=== PATIENT | female | born 1980 | race Two or more races ===

== ENCOUNTER 2016-10-01 15:44 | Emergency (ER) | payer OTHER ==
[~2016-10-01] VITALS: Ht 160 cm; Wt 111.6 kg
--- NOTE | 2016-10-01 16:17 | EKG ---
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
[2016-10-01] MEDS: CLONIDINE HCL 0.1 MG TABLET PO ONE ×2 (16:40→18:13)
[2016-10-01] MEDS: OXYCODONE/APAP 10/325 TABLET. PO ONE (17:08)
--- NOTE | 2016-10-01 17:09 | RAD ---
Right ankle, 3 views, 10/01/2016: History: Fall, pain No acute fracture or dislocation is identified. A small calcific fragment along the dorsal aspect of the anterior portion of the talus appears to be old. There is moderate diffuse soft tissue swelling about the ankle. IMPRESSION: No acute bony abnormality is detected.
[2016-10-01] MEDS: CARVEDILOL 25 MG TABLET PO ONE (17:10)
[2016-10-01] MEDS: HYDROCHLOROTHIAZIDE 25 MG TABLET PO ONE (17:12)
[2016-10-01 18:13] VITALS: BP 159/108
--- NOTE | 2016-10-05 09:22 | ED.ADGEN ---
Past History Past Medical History: Other Past Surgical History: Appendectomy, Alcohol Use: Occasionally Drug Use: None Adult General Chief Complaint Chief Complaint Multiple medical complaints HPI HPI Patient is a 35-year-old female who presents with multiple medical complaints approximately one week ago. Reports persistent pain in ambulation with aggravation of lower back pain. Patient has reveals back surgery. Patient so noted to be hypertensive is been off all blood pressure medications for the past several months due to loss of insurance. Patient recently regained her healthcare insurance like to be stressed restart on medications. Patient denies headache, blurred vision, chest pain, palpitations, shortness of breath. No other acute symptoms or complaints. Review of Systems Review of Systems Review symptoms as per history of present illness. All other review symptoms are negative. Current Medications Current Medications Current Medications Medications (Trade) Dose Ordered Sig/Marycruz Start Time Stop Time Status Last Admin Dose Admin Carvedilol (Coreg) 25 mg 1X ONCE 10/01/16 17:15 10/01/16 17:16 DC 10/01/16 17:10 25 MG Clonidine HCl (Catapres) 0.1 mg 1X ONCE 10/01/16 18:15 10/01/16 18:16 DC 10/01/16 18:13 0.1 MG Hydrochlorothiazide (Hydrodiuril) 25 mg 1X ONCE 10/01/16 17:00 10/01/16 17:01 DC 10/01/16 17:12 25 MG Oxycodone/ Acetaminophen (Percocet 10/325) 1 tab 1X ONCE 10/01/16 17:10 10/01/16 17:11 DC 10/01/16 17:08 1 TAB Allergies Allergies Allergies Coded Allergies Type Severity Reaction Last Updated Verified Penicillins Allergy Unknown 10/01/16 Yes Physical Exam Physical Exam Constitutional: Well developed, well nourished, no acute distress, non-toxic appearance. HENT: Normocephalic, atraumatic, bilateral external ears normal, oropharynx moist, no oral exudates, nose normal. Eyes: PERRL. Neck: Normal range of motion, no tenderness, supple. Cardiovascular:Heart rate regular rhythm, no murmur. Lungs & Thorax: Bilateral breath sounds clear to auscultation. Abdomen: Bowel sounds normal, soft, no tenderness. Skin: Warm, dry, no erythema, no rash. Back: No tenderness, diffuse low back pain. Extremities: Right ankle, swelling, tenderness over lateral malleolus, noted. Neurologic: Alert and oriented X 3, normal motor function, normal sensory function, no focal deficits noted. Psychologic: Affect normal, judgement normal, mood normal. Current Patient Data Vital Signs Vital Signs Date Time Temp Pulse Resp B/P Pulse Ox O2 Delivery O2 Flow Rate FiO2 10/01/16 18:13 81 159/108 10/01/16 16:21 97.9 20 97 Room Air EKG EKG [] Radiology/Procedures Radiology/Procedures [] Impressions: Hypertension with medical noncompliance Course & Med Decision Making Course & Med Decision Making Pertinent Labs and Imaging studies reviewed. (See chart for details) [Blood pressure no evidence of fracture on x-ray. Will treat back pain. PCP referral. Return precautions reviewed.] Final Impression Final Impression [1. Hypertension 2. right ankle sprain 3. acute low back pain] Problems: Dragon Disclaimer Dragon Disclaimer This electronic medical record was generated, in whole or in part, using a voice recognition dictation system. NIKA DUNHAM DO Oct 05, 2016 09:21
== END 2016-10-01 18:28 | disposition home or self-care (01) ==
LOC: ER 15:44
DX: M54.5 Low back pain (principal); I10 Essential (primary) hypertension; S93.401A Sprain of unspecified ligament of right ankle, initial encounter; Z91.19 Patient's noncompliance with other medical treatment and regimen; Z88.0 Allergy status to penicillin; X58.XXXA Exposure to other specified factors, initial encounter; Y93.89 Activity, other specified; Y92.89 Other specified places as the place of occurrence of the external cause; Y99.8 Other external cause status
CPT/HCPCS: 73610; 93005; 99284

== ENCOUNTER 2016-10-20 10:25 | Emergency (ER) | payer OTHER ==
[~2016-10-20] VITALS: Ht 160 cm; Wt 111.1 kg
[2016-10-20 10:45] VITALS: BP 166/106
[2016-10-20] MEDS ORDERED: AZIT500T PO (11:41)
--- NOTE | 2016-10-20 14:00 | ED.ADGEN ---
Past History Past Medical History: Hypertension Past Surgical History: Appendectomy, , Other Alcohol Use: Occasionally Drug Use: None Adult General Chief Complaint Chief Complaint Sore throat, cough, sinus congestion HPI HPI Patient is a 35 year old female who presents with sore throat, sinus drainage and cough since last night. No known fevers. She has not taken any symptom controlling medication. Presents with 3 other family members with similar complaints. No shortness of breath. Review of Systems Review of Systems Constitutional: Denies fever or chills [] Eyes: Denies change in visual acuity, redness, or eye pain [] HENT: Denies nasal congestion or sore throat [] Respiratory: Denies cough or shortness of breath [] Cardiovascular: No additional information not addressed in HPI [] GI: Denies abdominal pain, nausea, vomiting, bloody stools or diarrhea [] : Denies dysuria or hematuria [] Musculoskeletal: Denies back pain or joint pain [] Integument: Denies rash or skin lesions [] Neurologic: Denies headache, focal weakness or sensory changes [] Endocrine: Denies polyuria or polydipsia [] Allergies Allergies Allergies Coded Allergies Type Severity Reaction Last Updated Verified Penicillins Allergy Unknown 10/01/16 Yes Physical Exam Physical Exam Constitutional: Well developed, well nourished, no acute distress, non-toxic appearance. [] HENT: Normocephalic, atraumatic, bilateral external ears normal, oropharynx moist, no oral exudates, nose normal. erythema with mild edema, no exudate, uvula rises midline Eyes: PERRLA, EOMI, conjunctiva normal, no discharge. [] Neck: Normal range of motion, no tenderness, supple, no stridor. [] Cardiovascular:Heart rate regular with regular rhythm, no murmur [] Lungs & Thorax: Bilateral breath sounds clear to auscultation , no wheeze or crackles Abdomen: Bowel sounds normal, soft, no tenderness, no masses, no pulsatile masses. [] Skin: Warm, dry, no erythema, no rash. [] Back: No tenderness, no CVA tenderness. [] Extremities: No tenderness, no cyanosis, no clubbing, ROM intact, no edema. [] Neurologic: Alert and oriented X 3, normal motor function, normal sensory function, no focal deficits noted. [] Current Patient Data Vital Signs Vital Signs Date Time Temp Pulse Resp B/P Pulse Ox O2 Delivery O2 Flow Rate FiO2 10/20/16 10:45 98.4 80 16 98 Lab Results Laboratory Tests Test 10/20/16 11:10 Group A Streptococcus Rapid Positive (NEGATIVE) EKG EKG [] Radiology/Procedures Radiology/Procedures [] Course & Med Decision Making Course & Med Decision Making Pertinent Labs and Imaging studies reviewed. (See chart for details) rapid strep positive. Pt dc'd with rx for azithromycin 500mg daily x 5 days Final Impression Final Impression strep pharyngitis[] Problems: Dragon Disclaimer Dragon Disclaimer This electronic medical record was generated, in whole or in part, using a voice recognition dictation system. VAMSI LIMA MD Oct 20, 2016 14:00
== END 2016-10-20 12:08 | disposition home or self-care (01) ==
LOC: ER 10:25
DX: J02.0 Streptococcal pharyngitis (principal); I10 Essential (primary) hypertension; Z88.0 Allergy status to penicillin
CPT/HCPCS: 87880; 99283

== ENCOUNTER 2017-02-26 07:21 | Emergency (ER) | payer OTHER ==
[~2017-02-26] VITALS: Ht 160 cm; Wt 106.1 kg
[~2017-02-26 07:21] MED LIST: AZIT500T PO
--- NOTE | 2017-02-26 07:54 | ED.ADGEN ---
Past History Past Medical History: Hypertension Past Surgical History: Appendectomy, , Other Alcohol Use: Occasionally Drug Use: None Adult General HPI HPI Patient is a 36-year-old woman, with history of hypertension, which she states was diagnosed at age 16, and cardiomyopathy. Patient presents emergency department complaining of a 3 day history of "my blood pressure being high". She states she's been experiencing headache, dizziness and lightheadedness, with numbness in her right hand, also swelling in her feet and hands, additionally she's been experiencing pain with urination, and chest pain which she states is in the center of her chest and also radiating into her left shoulder. Associated with some shortness of breath. Swelling in hands and feet is currently resolved. 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 Patient states that she has had similar to previously due to uncontrolled high blood pressure. She states she stopped taking her blood pressure medication 2 days ago, because "I just forgot to take it", due to her life stressors. She states she does not currently have a primary care provider, she is preceded been seen by Dr. Dumont of cardiology , but has not followed up with a provider in over a year. She states that previously she is being evaluated for a possible pacemaker due to bradycardia, but did not follow-up. She denies any recent travel or surgery, and history of DVT or PE, any ingestions, rashes, exposures, nausea, vomiting, diarrhea, denies any possibility of . Describes her headache as located in the back of her head, and similar to previous headaches that she's experienced with high blood pressure, denies any focal weakness, describes it as being "weak all over", and the headache as an aching and throbbing sensation, no vision changes , no fevers or chills. BP:193/127, HR:78, 98%, RR:18, unlabored, Temp: 98.4 PO. Review of Systems Review of Systems Constitutional: Denies fever or chills [] Eyes: Denies change in visual acuity, redness, or eye pain [] HENT: Denies nasal congestion or sore throat [] Respiratory: Denies cough or shortness of breath [] Cardiovascular: No additional information not addressed in HPI [] GI: Denies abdominal pain, nausea, vomiting, bloody stools or diarrhea [] : Denies hematuria, complaining of some pain with urination, and pain in her back. Last 3 days. Musculoskeletal: Denies joint pain , complaining of left lower back aching. [] Integument: Denies rash or skin lesions [] Neurologic: Denies focal weakness, complaining of headache, generalized weakness , numbness in the right hand. Presyncopal type symptoms. Endocrine: Denies polyuria or polydipsia [] Current Medications Current Medications Current Medications Medications (Trade) Dose Ordered Sig/Marycruz Start Time Stop Time Status Last Admin Dose Admin Acetaminophen (Tylenol) 1,000 mg 1X ONCE 02/26/17 08:10 02/26/17 08:11 DC 02/26/17 08:10 1,000 MG Carvedilol (Coreg) 25 mg 1X ONCE 02/26/17 08:30 02/26/17 08:31 DC 02/26/17 08:30 25 MG Hydrochlorothiazide (Hydrodiuril) 25 mg 1X ONCE 02/26/17 08:30 02/26/17 08:31 DC 02/26/17 08:14 25 MG Labetalol HCl (Normodyne) 10 mg 1X ONCE 02/26/17 09:15 02/26/17 09:16 DC 02/26/17 09:15 10 MG Nicardipine HCl 50 mg/Sodium Chloride 270 ml @ 0 mls/hr CONT PRN 02/26/17 09:30 Allergies Allergies Allergies Coded Allergies Type Severity Reaction Last Updated Verified Penicillins Allergy Unknown 10/01/16 Yes Physical Exam Physical Exam Constitutional: Well developed, well nourished, no acute distress, non-toxic appearance. [] HENT: Normocephalic, atraumatic, bilateral external ears normal, oropharynx moist, no oral exudates, nose normal. [] Eyes: PERRLA, EOMI, conjunctiva normal, no discharge. [] Neck: Normal range of motion, no tenderness, supple, no stridor. [] Cardiovascular:Heart rate regular rhythm, no murmur, S1, S2, no rubs or gallops. [] Lungs & Thorax: Bilateral breath sounds clear to auscultation , no wheezing, rhonchi, rales. No chest or crepitus or tenderness. [] Abdomen: Bowel sounds normal, soft, no tenderness, no rebound, rigidity, no guarding, no masses, no pulsatile masses. [] Skin: Warm, dry, no erythema, no rash. [] Back: No tenderness, no CVA tenderness. [] Extremities: No tenderness, no cyanosis, no clubbing, ROM intact, no edema. Negative Homans sign. [] Neurologic: Alert and oriented X 3, normal motor function, normal sensory function, no focal deficits noted. [] Psychologic: Affect normal, judgement normal, mood normal. [] Current Patient Data Vital Signs Vital Signs Date Time Temp Pulse Resp B/P (MAP) Pulse Ox O2 Delivery O2 Flow Rate FiO2 02/26/17 09:15 67 200/119 02/26/17 09:05 18 98 02/26/17 07:36 98.4 Room Air Lab Results Laboratory Tests Test 02/26/17 07:38 02/26/17 08:05 02/26/17 08:20 White Blood Count 8.0 x10^3/uL (4.0-11.0) Red Blood Count 4.43 x10^6/uL (3.50-5.40) Hemoglobin 13.6 g/dL (12.0-15.5) Hematocrit 40.8 % (36.0-47.0) Mean Corpuscular Volume 92 fL (79-100) Mean Corpuscular Hemoglobin 31 pg (25-35) Mean Corpuscular Hemoglobin Concent 33 g/dL (31-37) Red Cell Distribution Width 13.5 % (11.5-14.5) Platelet Count 173 x10^3/uL (140-400) Neutrophils (%) (Auto) 65 % (31-73) Lymphocytes (%) (Auto) 23 % (24-48) L Monocytes (%) (Auto) 6 % (0-9) Eosinophils (%) (Auto) 6 % (0-3) H Basophils (%) (Auto) 1 % (0-3) Neutrophils # (Auto) 5.2 x10^3uL (1.8-7.7) Lymphocytes # (Auto) 1.8 x10^3/uL (1.0-4.8) Monocytes # (Auto) 0.5 x10^3/uL (0.0-1.1) Eosinophils # (Auto) 0.5 x10^3/uL (0.0-0.7) Basophils # (Auto) 0.1 x10^3/uL (0.0-0.2) Sodium Level 139 mmol/L (136-145) Potassium Level 4.0 mmol/L (3.5-5.1) Chloride Level 106 mmol/L (98-107) Carbon Dioxide Level 26 mmol/L (21-32) Anion Gap 7 (6-14) Blood Urea Nitrogen 14 mg/dL (7-20) Creatinine 0.8 mg/dL (0.6-1.0) Estimated GFR (Cockcroft-Gault) 82.1 BUN/Creatinine Ratio 18 (6-20) Glucose Level 104 mg/dL (70-99) H Calcium Level 8.5 mg/dL (8.5-10.1) Total Bilirubin 0.5 mg/dL (0.2-1.0) Aspartate Amino Transferase (AST) 15 U/L (15-37) Alanine Aminotransferase (ALT) 17 U/L (14-59) Alkaline Phosphatase 90 U/L (46-116) Troponin I Quantitative < 0.017 ng/mL (0-0.055) BD-Ibk-H-Type Natriuretic Peptide 192 pg/mL (0-124) H Total Protein 6.9 g/dL (6.4-8.2) Albumin 3.4 g/dL (3.4-5.0) Albumin/Globulin Ratio 1.0 (1.0-1.7) Urine Collection Type Unknown Urine Color Straw Urine Clarity Hazy Urine pH 7.0 Urine Specific [place] 1.010 Urine Protein Neg (NEG-TRACE) Urine Glucose (UA) Neg mg/dL (NEG) Urine Ketones (Stick) Neg mg/dL (NEG) Urine Blood Mod (NEG) Urine Nitrite Neg (NEG) Urine Bilirubin Neg (NEG) Urine Urobilinogen Dipstick 0.2 mg/dL (0.2 mg/dL) Urine Leukocyte Esterase Neg (NEG) Urine RBC 3-5 /HPF (0-2) Urine WBC Rare /HPF (0-4) Urine Squamous Epithelial Cells Few /LPF Urine Transitional Epithelial Cells Occ /LPF Urine Bacteria Few /HPF (0-FEW) Urine Opiates Screen Neg (NEG) Urine Methadone Screen Neg (NEG) Urine Barbiturates Neg (NEG) Urine Phencyclidine Screen Neg (NEG) Urine Amphetamine/Methamphetamine Neg (NEG) Urine Benzodiazepines Screen Neg (NEG) Urine Cocaine Screen Neg (NEG) Urine Cannabinoids Screen Pos (NEG) Urine Ethyl Alcohol Neg (NEG) EKG EKG EC: Sinus rhythm, heart rate 67 beats/minute, upright axis, QTC of 426, MI 150, QRS of 88, patient with contour normality is noted in lead 3, and in the lateral leads, with nonspecific elevation noted in V4 through V6, no other abnormality is identified. Abnormal ECG, does not meet STEMI criteria, no prior for comparison. As interpreted by me. [] Radiology/Procedures Radiology/Procedures [][address] [address] IMAGING REPORT Signed PATIENT: ROSS QUISPE ACCOUNT: [id number] : 1980 LOCATION: ER AGE: 36 SEX: F EXAM STATUS: REG ER ORD. PHYSICIAN: TREY NICOLAS DO REASON: HTN/Dizziness/GARCIA PROCEDURE: CT HEAD WO CONTRAST CT head without contrast 02/26/2017 Indication: Hypertension, dizziness Comparison: None available Technique: Multiple axial noncontrast CT images of the head were obtained from the skull base through the vertex. Findings: The ventricles, sulci and basal cisterns are within normal limits. Posey-white matter differentiation is normal. There is no acute intracranial hemorrhage. There is no mass, mass effect or midline shift. Sellar and suprasellar cistern appear normal. Orbits are normal in appearance. Paranasal sinuses are well aerated. Mastoid air cells are well aerated. Scalp and calvaria are normal. Impression: There is no acute intracranial hemorrhage. PQRS Compliance Statement: One or more of the following individualized dose reduction techniques were utilized for this examination: 1. Automated exposure control 2. Adjustment of the mA and/or kV according to patient size 3. Use of iterative reconstruction technique DICTATED AND SIGNED BY: SOWMYA PENN MD DATE: 02/26/17 0845 CC: TREY NICOLAS DO; PCP,NO ~ [address] [address] IMAGING REPORT Signed PATIENT: ROSS QUISPE ACCOUNT: [id number] : 1980 LOCATION: ER AGE: 36 SEX: F EXAM STATUS: REG ER ORD. PHYSICIAN: TREY NICOLAS DO REASON: CP/HTN PROCEDURE: CHEST PA & LATERAL Chest radiograph 02/26/2017 9:33 AM Indication: Hypertension, dizziness Comparison: None available Technique: PA and lateral views of the chest are provided. Findings: Cardiomediastinal silhouette is within normal limits. No pleural effusions, pulmonary vascular congestion or pneumothorax. There is an 8 mm nodular opacity in the right upper lobe. Lungs are otherwise clear. Osseous structures are normal. Impression: 1. There is an 8 mm nodular opacity in the right upper lobe. This finding is indeterminate and further evaluation with nonemergent CT chest may be of benefit. 2. Otherwise, no evidence for pulmonary infiltrate. DICTATED AND SIGNED BY: SOWMYA PENN MD DATE: 02/26/17 0847 CC: TREY NICOLAS DO; PCP,NO ~ Course & Med Decision Making Course & Med Decision Making Pertinent Labs and Imaging studies reviewed. (See chart for details) After discussion at bedside concerning risk versus benefit of imaging and evaluation, patient is agreeable to receiving CT of the head due to hypertension with headache, and complaint of sensory changes, although subjectively patient's examination is unremarkable, along with chest x-ray, and laboratory studies. ECG reveals contour abnormalities in the inferior leads and lateral leads, review of records reveals patient's blood pressure medication to be lisinopril/hydrochlorothiazide 20-25 milligrams once daily, and carvedilol 25 mg once daily per her last pharmacy fills at [facility]. All medications ordered, along with Tylenol, patient blood pressure before treatment is 166/112, heart rate of 63-68. Patient received home medications and Tylenol without issue as stated, blood pressure remained elevated, 180/116 1 hour after receiving her medications, CT of head was unremarkable, chest x-ray revealed no acute findings , but evidence of an 8 mm nodule in the right upper lobe which require further follow-up. Laboratory studies not reveal acutely concerning findings, urine drug screen is positive for marijuana. 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 He recommends administering 10 mg labetalol IV, heart rate remains in the 60s, and blood pressure remains 180s over 1 teens as stated, and instituting the patient in a nicardipine infusion. He requested the patient be transferred to [facility] for additional evaluation and treatment. I did speak to the patient, patient is agreeable this plan as stated, written consent obtained. I spoke with Dr. Yanes of internal medicine, patient was accepted to her service as a full admission for malignant hypertension, with cardiology consultation and management as stated. Final Impression Final Impression [] Problems: Dragon Disclaimer Dragon Disclaimer This electronic medical record was generated, in whole or in part, using a voice recognition dictation system. Departure: Impression: Primary Impression: Malignant hypertension Additional Impression: Noncompliance w/medication treatment due to intermit use of medication Disposition: XFER T-TRM HOSP Condition: IMPROVED TREY NICOLAS DO Feb 26, 2017 07:54
[2017-02-26] MEDS ORDERED: ACETAMINOPHEN 500 MG TABLET PO ONE (08:10)
[2017-02-26 08:25] LABS: BASO # 0.1 x10^3/uL (0.0-0.2); BASO % 1 % (0-3); EOS # 0.5 x10^3/uL (0.0-0.7); EOS % 6 % (0-3); HEMATOCRIT 40.8 % (36.0-47.0); HEMOGLOBIN 13.6 g/dL (12.0-15.5); LYMPH # 1.8 x10^3/uL (1.0-4.8); LYMPH % 23 % (24-48); MEAN CORPUSCULAR HEMOGLOBIN 31 pg (25-35); MEAN CORPUSCULAR HGB CONC 33 g/dL (31-37); MEAN CORPUSCULAR VOLUME 92 fL (79-100); MONO # 0.5 x10^3/uL (0.0-1.1); MONO % 6 % (0-9); NEUT # 5.2 x10^3uL (1.8-7.7); NEUT % 65 % (31-73); PLATELET COUNT 173 x10^3/uL (140-400); RED BLOOD COUNT 4.43 x10^6/uL (3.50-5.40); RED CELL DISTRIBUTION WIDTH 13.5 % (11.5-14.5)
[2017-02-26] MEDS ORDERED: hydroCHLOROthiazide 25 MG TABLET PO ONE (08:30)
[2017-02-26] MEDS ORDERED: CARVEDILOL 12.5 MG TABLET PO ONE (08:30)
[2017-02-26 08:37] LABS: ALBUMIN 3.4 g/dL (3.4-5.0); CALCIUM 8.5 mg/dL (8.5-10.1); CREATININE 0.8 mg/dL (0.6-1.0); GFR 82.1; TOTAL BILIRUBIN 0.5 mg/dL (0.2-1.0); TOTAL PROTEIN 6.9 g/dL (6.4-8.2)
--- NOTE | 2017-02-26 08:50 | RAD ---
CT head without contrast 02/26/2017 Indication: Hypertension, dizziness Comparison: None available Technique: Multiple axial noncontrast CT images of the head were obtained from the skull base through the vertex. Findings: The ventricles, sulci and basal cisterns are within normal limits. Posey-white matter differentiation is normal. There is no acute intracranial hemorrhage. There is no mass, mass effect or midline shift. Sellar and suprasellar cistern appear normal. Orbits are normal in appearance. Paranasal sinuses are well aerated. Mastoid air cells are well aerated. Scalp and calvaria are normal. Impression: There is no acute intracranial hemorrhage. PQRS Compliance Statement: One or more of the following individualized dose reduction techniques were utilized for this examination: 1. Automated exposure control 2. Adjustment of the mA and/or kV according to patient size 3. Use of iterative reconstruction technique
--- NOTE | 2017-02-26 08:52 | RAD ---
Chest radiograph 02/26/2017 9:33 AM Indication: Hypertension, dizziness Comparison: None available Technique: PA and lateral views of the chest are provided. Findings: Cardiomediastinal silhouette is within normal limits. No pleural effusions, pulmonary vascular congestion or pneumothorax. There is an 8 mm nodular opacity in the right upper lobe. Lungs are otherwise clear. Osseous structures are normal. Impression: 1. There is an 8 mm nodular opacity in the right upper lobe. This finding is indeterminate and further evaluation with nonemergent CT chest may be of benefit. 2. Otherwise, no evidence for pulmonary infiltrate.
[2017-02-26 08:55] LABS: BILIRUBIN,URINE NEG (NEG); CLARITY,URINE HAZY; COLOR,URINE STRAW; GLUCOSE,URINE NEG (NEG)
[2017-02-26 08:56] LABS: BACTERIA,URINE FEW /HPF (0-FEW); NITRITE,URINE NEG (NEG); SQUAMOUS EPITHELIAL CELL,UR FEW /LPF; UROBILINOGEN,URINE 0.2 mg/dL (0.2 mg/dL); WBC,URINE RARE /HPF (0-4)
[2017-02-26 09:06] LABS: AMPHETAMINE/METHAMPHETAMINE NEG (NEG); BARBITURATES NEG (NEG); BENZODIAZEPINES NEG (NEG); CANNABINOIDS POS (NEG); COCAINE NEG (NEG); METHADONE NEG (NEG); OPIATES NEG (NEG); PHENCYCLIDINE NEG (NEG)
[2017-02-26] MEDS ORDERED: LABETALOL 20 MG/4 ML DISP.SYRIN. IVP ONE (09:15)
[2017-02-26 09:57] LABS: U PREG PATIENT NEGATIVE (NEG)
--- NOTE | 2017-02-26 10:14 | EKG ---
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
[2017-02-26 10:40] VITALS: BP 146/79
== END 2017-02-26 10:48 | disposition short-term general hospital (02) ==
LOC: ER 07:21 → EEVIPCON 07:21 → ER 10:48
DX: I10 Essential (primary) hypertension (principal); I42.9 Cardiomyopathy, unspecified; Z91.14 Patient's other noncompliance with medication regimen; Z88.0 Allergy status to penicillin
CPT/HCPCS: 36415; 70450; 71020; 80053; 80307; 81001; 81025; 83880; 84484; 85025; 93005; 96374; 99285; J3490; G0479

== ENCOUNTER 2017-04-29 23:58 | Emergency (ER) | payer OTHER ==
[~2017-04-29] VITALS: Ht 160 cm; Wt 105.0 kg
--- NOTE | 2017-04-30 00:07 | ED.ADGEN ---
Past History Past Medical History: Bipolar, Depression, Hypertension, [place], Other Additional Past Medical Histor: Alcohol Abuse Past Surgical History: Appendectomy, , Other Alcohol Use: Occasionally Drug Use: Marijuana Adult General Chief Complaint Chief Complaint " I want to fucking ... ".. " I can't fucking breath..."... " I got severe chest pain...." " I don't give a shit...I am going to fucking kill myself anyway...".." They fucking arrested me.. for trying to kill the fucker and throw his ass out".. HPI HPI Patient is a 36 year old female who presents with above hx and complaints severe chest pain, dyspnea and suicidal ideation. Pt. had been placed under arrest for disruptive behavior and property destruction. Pt. complaining of central chest pain and severe dyspnea. Pt. does admit to heavy alcohol use tonight. Pt. states she been worked up before for chest pain. Pt. on 2016 & EKG showed a normal sinus rhythm. Pt. EKG tonight showed Supraventricular rate 107 with LBB, Intraventricular block findings consistent with anterolateral [place]. Pt. is very agitated, diaphoretic, and combative. Pt was activated as STEMI. Pt. has followed with Dr. Dumont in past. Calls placed to Dr. Dumont. Number given for Presley huggins Discussed findings with Dr. Wang and he was tele -faxed our EKG's. He advised he would not take pt to cath at this time. Dr. Sherwood eventually contacted and advised to have pt. admitted to Hospitalist and he would take the cardiology consult. Pt. Admitted to Dr. Rogel - after unable to contact Dr. Solano by phone. Review of Systems Review of Systems Constitutional: Denies fever or chills [] Eyes: Denies change in visual acuity, redness, or eye pain [] HENT: Denies nasal congestion or sore throat [] Respiratory: Denies cough or shortness of breath [] Cardiovascular: No additional information not addressed in HPI [] GI: Denies abdominal pain, nausea, vomiting, bloody stools or diarrhea [] : Denies dysuria or hematuria [] Musculoskeletal: Denies back pain or joint pain [] Integument: Denies rash or skin lesions [] Neurologic: Denies headache, focal weakness or sensory changes [] Endocrine: Denies polyuria or polydipsia [] Family History Family History [place], DM Current Medications Current Medications Current Medications Medications (Trade) Dose Ordered Sig/Marycruz Start Time Stop Time Status Last Admin Dose Admin Aspirin (Children'S Aspirin) 324 mg 1X ONCE 04/30/17 00:15 04/30/17 00:41 DC 04/30/17 00:15 324 MG Enoxaparin Sodium (Lovenox 100mg Syringe) 100 mg 1X ONCE 04/30/17 00:45 04/30/17 00:46 DC 04/30/17 00:43 100 MG See Nursing for home meds. Allergies Allergies Allergies Coded Allergies Type Severity Reaction Last Updated Verified Penicillins Allergy Unknown 10/01/16 Yes Physical Exam Physical Exam Constitutional: in acute emotional distress, intoxicated appearance. Yelling she wants to . Yelling she is going to kill herself first chance she gets. HENT: Normocephalic, atraumatic, bilateral external ears normal, oropharynx moist, no oral exudates, nose normal. Poor dentition. Abrasions on her neck and face Eyes: PERRLA, EOMI, conjunctiva injected, no discharge. [] Neck: Normal range of motion, no tenderness, supple, no stridor. Abrasion Hicks on neck. Circumference more than 17 inches Cardiovascular:Tachycardia rate regular rhythm, no murmur . PMI to the left. Pulses equal radial and femoral. Lungs & Thorax: Bilateral breath sounds equal at apex with scattered wheezes on auscultation [] Abdomen: Bowel sounds decreased, soft, no tenderness, no masses, no pulsatile masses. Obese. Old surgery scars Skin: Warm, diaphoretic, no erythema, no rash. [] Back: No tenderness, no CVA tenderness. [] Extremities: No tenderness, no cyanosis, no clubbing, ROM intact, 2+ ankle edema. No cording appreciated Neurologic: Alert and oriented X 3, but appear very intoxicated- ETOH, normal motor function, normal sensory function, no focal deficits noted. [] Psychologic: Affect agitated and threatening to kill herself, judgement irrational, mood vacillates between crying and threatening Current Patient Data Vital Signs Vital Signs Date Time Temp Pulse Resp B/P (MAP) Pulse Ox O2 Delivery O2 Flow Rate FiO2 04/29/17 23:58 98.2 131 36 100 Room Air Lab Results Laboratory Tests Test 04/30/17 00:05 04/30/17 00:30 White Blood Count 11.3 x10^3/uL (4.0-11.0) H Red Blood Count 4.84 x10^6/uL (3.50-5.40) Hemoglobin 15.2 g/dL (12.0-15.5) Hematocrit 44.5 % (36.0-47.0) Mean Corpuscular Volume 92 fL (79-100) Mean Corpuscular Hemoglobin 31 pg (25-35) Mean Corpuscular Hemoglobin Concent 34 g/dL (31-37) Red Cell Distribution Width 14.1 % (11.5-14.5) Platelet Count 238 x10^3/uL (140-400) Neutrophils (%) (Auto) 59 % (31-73) Lymphocytes (%) (Auto) 32 % (24-48) Monocytes (%) (Auto) 6 % (0-9) Eosinophils (%) (Auto) 3 % (0-3) Basophils (%) (Auto) 0 % (0-3) Neutrophils # (Auto) 6.6 x10^3uL (1.8-7.7) Lymphocytes # (Auto) 3.6 x10^3/uL (1.0-4.8) Monocytes # (Auto) 0.7 x10^3/uL (0.0-1.1) Eosinophils # (Auto) 0.3 x10^3/uL (0.0-0.7) Basophils # (Auto) 0.0 x10^3/uL (0.0-0.2) Prothrombin Time 10.5 SEC (9.4-11.4) Prothrombin Time INR 1.0 (0.9-1.1) PTT 27 SEC (23-33) D-Dimer ([place]) 0.45 mg/L (0.00-0.50) Maternal Serum HCG Beta Subunit 1 mIU/mL (0-6) Troponin I Quantitative < 0.017 ng/mL (0-0.055) Ethyl Alcohol Level 201 mg/dL (0-10) H Urine Collection Type Unknown Urine Color [place] Urine Clarity Cloudy Urine pH 6.0 Urine Specific [place] 1.010 Urine Protein 100 mg/dl (NEG-TRACE) Urine Glucose (UA) Neg mg/dL (NEG) Urine Ketones (Stick) Neg mg/dL (NEG) Urine Blood Large (NEG) Urine Nitrite Neg (NEG) Urine Bilirubin Neg (NEG) Urine Urobilinogen Dipstick 0.2 mg/dL (0.2 mg/dL) Urine Leukocyte Esterase Neg (NEG) Urine RBC Tntc /HPF (0-2) Urine WBC 5-10 /HPF (0-4) Urine Squamous Epithelial Cells Occ /LPF Urine Bacteria Mod /HPF (0-FEW) Sodium Level 145 mmol/L (136-145) Potassium Level 3.2 mmol/L (3.5-5.1) L Chloride Level 109 mmol/L (98-107) H Carbon Dioxide Level 17 mmol/L (21-32) L Anion Gap 19 (6-14) H Blood Urea Nitrogen 14 mg/dL (7-20) Creatinine 1.0 mg/dL (0.6-1.0) Estimated GFR (Cockcroft-Gault) 63.5 BUN/Creatinine Ratio 14 (6-20) Glucose Level 134 mg/dL (70-99) H Calcium Level 8.9 mg/dL (8.5-10.1) Magnesium Level 2.2 mg/dL (1.8-2.4) Total Bilirubin 0.3 mg/dL (0.2-1.0) Direct Bilirubin 0.1 mg/dL (0.0-0.2) Aspartate Amino Transferase (AST) 19 U/L (15-37) Alanine Aminotransferase (ALT) 23 U/L (14-59) Alkaline Phosphatase 99 U/L (46-116) Creatine Kinase 118 U/L (26-192) Creatine Kinase MB (Mass) 0.8 ng/mL (0.0-3.6) Creatine Kinase MB Relative Index 0.7 % (0-4) ID-Qok-M-Type Natriuretic Peptide 134 pg/mL (0-124) H Total Protein 8.1 g/dL (6.4-8.2) Albumin 4.1 g/dL (3.4-5.0) Albumin/Globulin Ratio 1.0 (1.0-1.7) Lipase 264 U/L (73-393) Urine Opiates Screen Neg (NEG) Urine Methadone Screen Neg (NEG) Urine Barbiturates Neg (NEG) Urine Phencyclidine Screen Neg (NEG) Urine Amphetamine/Methamphetamine Neg (NEG) Urine Benzodiazepines Screen Neg (NEG) Urine Cocaine Screen Neg (NEG) Urine Cannabinoids Screen Pos (NEG) Urine Ethyl Alcohol Pos (NEG) EKG EKG My interpretation EKG shows a supraventricular rhythm at 107 bpm with left axis deviation and intraventricular block. A very abnormal EKG as compared to prior EKG s which were normal on 10/01/2016 and 02/26/17. Radiology/Procedures Radiology/Procedures Interpretation of chest x-ray shows cardiomegaly with no findings of pneumothorax or acute pulmonary changes.[] Course & Med Decision Making Course & Med Decision Making Pertinent Labs and Imaging studies reviewed. (See chart for details) Pt. activated as STEMI- because of CP complaints and EKG changes. Pt. transferred to [facility] and admitted to Dr. Ortiz with consult to cardiology. [] Final Impression Final Impression 1. Suicidal ideation 2. Dyspnea 3. Mental Status Change- Aggressive Behavior 4. Alcohol Abuse 5. Hypokalemia 6. MJ use 7. Leukocytosis 8. Chest Pain 9. New Lt. [place], Intraventricular Block Problems: Dragon Disclaimer Dragon Disclaimer This electronic medical record was generated, in whole or in part, using a voice recognition dictation system. EFREN SADLER MD Apr 30, 2017 00:07
[2017-04-30] MEDS ORDERED: ASPIRIN 81 MG TAB.CHEW PO ONE (00:15)
[2017-04-30 00:24] LABS: BASO % 0 % (0-3); EOS # 0.3 x10^3/uL (0.0-0.7); EOS % 3 % (0-3); HEMATOCRIT 44.5 % (36.0-47.0); HEMOGLOBIN 15.2 g/dL (12.0-15.5); LYMPH # 3.6 x10^3/uL (1.0-4.8); LYMPH % 32 % (24-48); MEAN CORPUSCULAR HEMOGLOBIN 31 pg (25-35); MEAN CORPUSCULAR HGB CONC 34 g/dL (31-37); MEAN CORPUSCULAR VOLUME 92 fL (79-100); MONO # 0.7 x10^3/uL (0.0-1.1); MONO % 6 % (0-9); NEUT # 6.6 x10^3uL (1.8-7.7); NEUT % 59 % (31-73); PLATELET COUNT 238 x10^3/uL (140-400); RED BLOOD COUNT 4.84 x10^6/uL (3.50-5.40); RED CELL DISTRIBUTION WIDTH 14.1 % (11.5-14.5); WHITE BLOOD COUNT 11.3 x10^3/uL (4.0-11.0)
[2017-04-30 00:35] VITALS: BP 165/109
--- NOTE | 2017-04-30 00:36 | EKG ---
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
[2017-04-30] MEDS ORDERED: ENOXAPARIN ** NOTE DOSE ** SYRINGE SQ ONE (00:45)
[2017-04-30 00:47] LABS: ALBUMIN 4.1 g/dL (3.4-5.0); CALCIUM 8.9 mg/dL (8.5-10.1); DIRECT BILIRUBIN 0.1 mg/dL (0.0-0.2); GFR 63.5; MAGNESIUM 2.2 mg/dL (1.8-2.4); POTASSIUM 3.2 mmol/L (3.5-5.1); TOTAL BILIRUBIN 0.3 mg/dL (0.2-1.0); TOTAL PROTEIN 8.1 g/dL (6.4-8.2)
[2017-04-30 00:51] LABS: BILIRUBIN,URINE NEG (NEG); CLARITY,URINE CLOUDY; COLOR,URINE PINK; GLUCOSE,URINE NEG (NEG); NITRITE,URINE NEG (NEG); RBC,URINE TNTC /HPF (0-2); UROBILINOGEN,URINE 0.2 mg/dL (0.2 mg/dL)
[2017-04-30 00:52] LABS: BACTERIA,URINE MOD /HPF (0-FEW); SQUAMOUS EPITHELIAL CELL,UR OCC /LPF
[2017-04-30 01:19] LABS: BARBITURATES NEG (NEG); BENZODIAZEPINES NEG (NEG); CANNABINOIDS POS (NEG); COCAINE NEG (NEG); METHADONE NEG (NEG); OPIATES NEG (NEG); PHENCYCLIDINE NEG (NEG)
[2017-04-30 01:20] LABS: AMPHETAMINE/METHAMPHETAMINE NEG (NEG)
--- NOTE | 2017-04-30 10:42 | RAD ---
Portable AP view CXR: Clinical indications: Chest pain and dyspnea. Abnormal EKG. Comparison: February 26, 2017. Findings: No acute lung infiltrate or pleural effusion or pulmonary edema or lung mass or pneumothorax is seen. The heart size, pulmonary vasculature, mediastinum and both zay are stable. Impression: No acute radiographic abnormality is seen.
== END 2017-04-30 00:48 | disposition short-term general hospital (02) ==
LOC: ER 23:58
DX: R45.851 Suicidal ideations (principal); R06.00 Dyspnea, unspecified; R41.82 Altered mental status, unspecified; F10.10 Alcohol abuse, uncomplicated; E87.6 Hypokalemia; D72.829 Elevated white blood cell count, unspecified; F12.90 Cannabis use, unspecified, uncomplicated; R07.89 Other chest pain; I10 Essential (primary) hypertension; I25.2 Old myocardial infarction; Z88.0 Allergy status to penicillin
CPT/HCPCS: 36415; 71010; 80053; 80076; 80307; 81001; 82553; 83690; 83735; 83880; 84443; 84484; 84702; 85025; 85379; 85610; 85730; 87086; 93005; 96372; 99285; G0480; J1650; G0479

== ENCOUNTER 2017-08-02 07:58 | Emergency (ER) | payer OTHER ==
[2017-08-02] MEDS ORDERED: ONDANSETRON PF 4 MG/2 ML VIAL. IV ONE (09:00)
[2017-08-02] MEDS ORDERED: IV NORMAL SALINE 500ML 500 ML IV ONE (09:00)
[2017-08-02 09:22] LABS: BASO % 1 % (0-3); EOS # 0.2 x10^3/uL (0.0-0.7); EOS % 2 % (0-3); HEMATOCRIT 40.9 % (36.0-47.0); LYMPH # 1.1 x10^3/uL (1.0-4.8); LYMPH % 16 % (24-48); MEAN CORPUSCULAR HEMOGLOBIN 32 pg (25-35); MEAN CORPUSCULAR HGB CONC 34 g/dL (31-37); MEAN CORPUSCULAR VOLUME 93 fL (79-100); MONO # 0.5 x10^3/uL (0.0-1.1); MONO % 7 % (0-9); NEUT # 5.3 x10^3uL (1.8-7.7); NEUT % 74 % (31-73); PLATELET COUNT 172 x10^3/uL (140-400); RED BLOOD COUNT 4.42 x10^6/uL (3.50-5.40); RED CELL DISTRIBUTION WIDTH 13.9 % (11.5-14.5); WHITE BLOOD COUNT 7.1 x10^3/uL (4.0-11.0)
[2017-08-02 09:30] LABS: BACTERIA,URINE 0 /HPF (0-FEW); BILIRUBIN,URINE NEG (NEG); CLARITY,URINE CLEAR; COLOR,URINE YELLOW; GLUCOSE,URINE NEG (NEG); NITRITE,URINE NEG (NEG); SQUAMOUS EPITHELIAL CELL,UR OCC /LPF; U PREG PATIENT NEGATIVE (NEG); UROBILINOGEN,URINE 0.2 mg/dL (0.2 mg/dL); WBC,URINE RARE /HPF (0-4)
[2017-08-02 09:40] LABS: ALBUMIN 3.6 g/dL (3.4-5.0); ALBUMIN/GLOBULIN RATIO 0.9 (1.0-1.7); CALCIUM 8.8 mg/dL (8.5-10.1); CREATININE 0.8 mg/dL (0.6-1.0); GFR 82.1; POTASSIUM 3.7 mmol/L (3.5-5.1); TOTAL BILIRUBIN 0.5 mg/dL (0.2-1.0); TOTAL PROTEIN 7.4 g/dL (6.4-8.2)
[2017-08-02 10:07] VITALS: BP 160/89
[2017-08-02] MEDS ORDERED: ONDA4TAB10 SL (10:28)
--- NOTE | 2017-08-02 10:28 | PHYS DOC ---
Past History Past Medical History: Bipolar, Depression, Hypertension, [place], Other Additional Past Medical Histor: Alcohol Abuse Past Surgical History: Appendectomy, , Other Alcohol Use: Heavy Drug Use: Marijuana Adult General Chief Complaint Chief Complaint: ABDOMINAL PAIN [facility] HPI 36-year-old female patient with history of cardiomyopathy and bipolar disorder complaining of nausea and vomiting and diarrhea for the last 48 hours. Patient states she has had 5 or 6 episodes of vomiting and several episodes of nonbloody diarrhea every day for the last 2 days with cramping lower abdominal pain after episodes of vomiting and diarrhea. She rated her pain 8/10 and denies radiation of pain. Patient states she had one episode of bowel incontinence this morning. She denies urinary symptoms, , sick contact , fever and chills, cough and congestion. Review of Systems Review of Systems Constitutional: Denies fever or chills [] Eyes: Denies change in visual acuity, redness, or eye pain [] HENT: Denies nasal congestion or sore throat [] Respiratory: Denies cough or shortness of breath [] Cardiovascular: No additional information not addressed in HPI [] GI: Reports abdominal pain, nausea, vomiting, diarrhea [] : Denies dysuria or hematuria [] Musculoskeletal: Denies back pain or joint pain [] Integument: Denies rash or skin lesions [] Neurologic: Denies headache, focal weakness or sensory changes [] Endocrine: Denies polyuria or polydipsia [] All other systems were reviewed and found to be within normal limits, except as documented in this note. Current Medications Current Medications Current Medications Medications (Trade) Dose Ordered Sig/Marycruz Start Time Stop Time Status Last Admin Dose Admin Acetaminophen/ Hydrocodone Bitart (Lortab 5/325) 1 tab 1X ONCE 08/02/17 10:30 08/02/17 10:31 UNV Ondansetron HCl (Zofran) 4 mg 1X ONCE 08/02/17 09:00 08/02/17 09:01 DC 08/02/17 09:05 4 MG Sodium Chloride 500 ml @ 0 mls/hr 1X ONCE 08/02/17 09:00 08/02/17 09:01 DC 08/02/17 09:04 500 MLS/HR Allergies Allergies Allergies Coded Allergies Type Severity Reaction Last Updated Verified Penicillins Allergy Unknown 10/01/16 Yes Physical Exam Physical Exam Constitutional: Well nourished, mild distress, non-toxic appearance, anxious. [] HENT: Normocephalic, atraumatic, bilateral external ears normal, oropharynx moist, no oral exudates, nose normal. [] Eyes: PERRLA, EOMI, conjunctiva normal, no discharge. [] Neck: Normal range of motion, no tenderness, supple, no stridor. [] Cardiovascular:Heart rate regular rhythm, no murmur [] Lungs & Thorax: Bilateral breath sounds clear to auscultation [] Abdomen: Bowel sounds normal, soft, no tenderness, no masses, no pulsatile masses. [] Skin: Warm, dry, no erythema, no rash. [] Back: No tenderness, no CVA tenderness. [] Extremities: No tenderness, no cyanosis, no clubbing, ROM intact, no edema. [] Neurologic: Alert and oriented X 3, normal motor function, normal sensory function, no focal deficits noted. [] Psychologic: Anxious, judgement normal Current Patient Data Lab Results Laboratory Tests Test 08/02/17 08:57 08/02/17 09:00 Urine Collection Type Unknown Urine Color Yellow Urine Clarity Clear Urine pH 5.5 Urine Specific [place] 1.015 Urine Protein Neg (NEG-TRACE) Urine Glucose (UA) Neg mg/dL (NEG) Urine Ketones (Stick) Neg mg/dL (NEG) Urine Blood Mod (NEG) Urine Nitrite Neg (NEG) Urine Bilirubin Neg (NEG) Urine Urobilinogen Dipstick 0.2 mg/dL (0.2 mg/dL) Urine Leukocyte Esterase Neg (NEG) Urine RBC 3-5 /HPF (0-2) Urine WBC Rare /HPF (0-4) Urine Squamous Epithelial Cells Occ /LPF Urine Transitional Epithelial Cells /LPF Urine Bacteria 0 /HPF (0-FEW) Urine Mucus Mod /LPF Urine Test Negative (NEG) White Blood Count 7.1 x10^3/uL (4.0-11.0) Red Blood Count 4.42 x10^6/uL (3.50-5.40) Hemoglobin 14.0 g/dL (12.0-15.5) Hematocrit 40.9 % (36.0-47.0) Mean Corpuscular Volume 93 fL (79-100) Mean Corpuscular Hemoglobin 32 pg (25-35) Mean Corpuscular Hemoglobin Concent 34 g/dL (31-37) Red Cell Distribution Width 13.9 % (11.5-14.5) Platelet Count 172 x10^3/uL (140-400) Neutrophils (%) (Auto) 74 % (31-73) H Lymphocytes (%) (Auto) 16 % (24-48) L Monocytes (%) (Auto) 7 % (0-9) Eosinophils (%) (Auto) 2 % (0-3) Basophils (%) (Auto) 1 % (0-3) Neutrophils # (Auto) 5.3 x10^3uL (1.8-7.7) Lymphocytes # (Auto) 1.1 x10^3/uL (1.0-4.8) Monocytes # (Auto) 0.5 x10^3/uL (0.0-1.1) Eosinophils # (Auto) 0.2 x10^3/uL (0.0-0.7) Basophils # (Auto) 0.0 x10^3/uL (0.0-0.2) Sodium Level 139 mmol/L (136-145) Potassium Level 3.7 mmol/L (3.5-5.1) Chloride Level 106 mmol/L (98-107) Carbon Dioxide Level 26 mmol/L (21-32) Anion Gap 7 (6-14) Blood Urea Nitrogen 10 mg/dL (7-20) Creatinine 0.8 mg/dL (0.6-1.0) Estimated GFR (Cockcroft-Gault) 82.1 BUN/Creatinine Ratio 13 (6-20) Glucose Level 103 mg/dL (70-99) H Calcium Level 8.8 mg/dL (8.5-10.1) Total Bilirubin 0.5 mg/dL (0.2-1.0) Aspartate Amino Transferase (AST) 13 U/L (15-37) L Alanine Aminotransferase (ALT) 24 U/L (14-59) Alkaline Phosphatase 87 U/L (46-116) Troponin I Quantitative < 0.017 ng/mL (0-0.055) Total Protein 7.4 g/dL (6.4-8.2) Albumin 3.6 g/dL (3.4-5.0) Albumin/Globulin Ratio 0.9 (1.0-1.7) L Lipase 210 U/L (73-393) EKG EKG [] Radiology/Procedures Radiology/Procedures [] Course & Med Decision Making Course & Med Decision Making Pertinent Labs studies reviewed. (See chart for details) Evaluation of patient in ER showed 36-year-old female patient with complaining of nausea and vomiting and diarrhea and abdominal pain for the last 48 hours. Patient had unremarkable physical exam except for mild anxiety. Labs was unremarkable. Patient treated with IV fluid and Zofran and [place] and felt better. Patient tolerated oral intake without problem. Plan discharge patient home to diagnose of acute viral gastroenteritis. Patient instructed to take liquid diet today. Dragon Disclaimer Dragon Disclaimer This electronic medical record was generated, in whole or in part, using a voice recognition dictation system. Departure Departure: Impression: Primary Impression: Viral gastroenteritis Disposition: HOME, SELF-CARE (At 1027) Condition: IMPROVED Referrals: MIKE PRUITT MD (PCP) Patient Instructions: Viral Gastroenteritis Additional Instructions: Take only liquid diet today Drink plenty of liquids Follow-up with your primary care physician in 3-5 days Return to ER if not getting better Scripts Ondansetron (ZOFRAN ODT) 4 Mg Tab.rapdis 1 TAB SL Q8HRS, #15 TAB Prov: ISAAC COVARRUBIAS MD 08/02/17 ISAAC COVARRUBIAS MD Aug 02, 2017 10:28
[2017-08-02] MEDS ORDERED: HYDROcodone/APAP 5/325MG 1 TAB TABLET PO ONE (10:30)
== END 2017-08-02 10:38 | disposition home or self-care (01) ==
LOC: ER 07:58
DX: A08.4 Viral intestinal infection, unspecified (principal); I10 Essential (primary) hypertension; F31.9 Bipolar disorder, unspecified; I25.2 Old myocardial infarction; F10.20 Alcohol dependence, uncomplicated; F12.10 Cannabis abuse, uncomplicated; Z88.0 Allergy status to penicillin
CPT/HCPCS: 36415; 80053; 81001; 81025; 83690; 84484; 85025; 96361; 96374; 99285; J2405; J7040

== ENCOUNTER 2018-09-05 11:31 | Emergency (ER) | payer OTHER ==
[~2018-09-05] VITALS: Ht 160 cm; Wt 80.3 kg
[~2018-09-05 11:31] MED LIST changes: +ONDA4TAB10 SL
[2018-09-05] MEDS ORDERED: IV NORMAL SALINE 1,000ML 1,000 ML IV ONE (12:00)
[2018-09-05] MEDS ORDERED: ONDANSETRON PF 4 MG/2 ML VIAL. IV ONE (12:00)
[2018-09-05 12:21] LABS: BASO % 1 % (0-3); EOS # 0.2 x10^3/uL (0.0-0.7); EOS % 3 % (0-3); HEMATOCRIT 38.4 % (36.0-47.0); HEMOGLOBIN 12.9 g/dL (12.0-15.5); LYMPH # 1.6 x10^3/uL (1.0-4.8); LYMPH % 26 % (24-48); MEAN CORPUSCULAR HEMOGLOBIN 32 pg (25-35); MEAN CORPUSCULAR HGB CONC 34 g/dL (31-37); MEAN CORPUSCULAR VOLUME 94 fL (79-100); MONO # 0.4 x10^3/uL (0.0-1.1); MONO % 6 % (0-9); NEUT # 4.1 x10^3uL (1.8-7.7); NEUT % 64 % (31-73); PLATELET COUNT 176 x10^3/uL (140-400); RED CELL DISTRIBUTION WIDTH 13.9 % (11.5-14.5); WHITE BLOOD COUNT 6.4 x10^3/uL (4.0-11.0)
[2018-09-05 12:23] LABS: BARBITURATES NEG (NEG); BENZODIAZEPINES NEG (NEG); CANNABINOIDS POS (NEG); COCAINE NEG (NEG); METHADONE NEG (NEG); OPIATES NEG (NEG); PHENCYCLIDINE NEG (NEG)
[2018-09-05 12:38] LABS: AMPHETAMINE/METHAMPHETAMINE POS (NEG)
[2018-09-05 12:38] LABS: ALBUMIN 3.3 g/dL (3.4-5.0); ALBUMIN/GLOBULIN RATIO 0.9 (1.0-1.7); CALCIUM 8.7 mg/dL (8.5-10.1); CREATININE 0.6 mg/dL (0.6-1.0); GFR 113.8; POTASSIUM 4.1 mmol/L (3.5-5.1); TOTAL BILIRUBIN 0.3 mg/dL (0.2-1.0)
--- NOTE | 2018-09-05 13:24 | PHYS DOC ---
Past History Past Medical History: Bipolar, Depression, Hypertension, [place], Other Additional Past Medical Histor: Alcohol Abuse Past Surgical History: Appendectomy, , Other Alcohol Use: Occasionally Drug Use: Marijuana, Methamphetamine, Opiates Adult General Chief Complaint Chief Complaint: ABDOMINAL PAIN IN HPI HPI 37-year-old female presents with abdominal pain and vaginal bleeding. Patient states she took a home tests and they were positive. She has had some left sided abdominal cramping whitish discharge. She has not had any vaginal bleeding. She is concerned about STD as well as the baby. Patient admits to recent drug use. She denies fever or chills. She is . Review of Systems Review of Systems Constitutional: Denies fever or chills [] Eyes: Denies change in visual acuity, redness, or eye pain [] HENT: Denies nasal congestion or sore throat [] Respiratory: Denies cough or shortness of breath [] Cardiovascular: No additional information not addressed in HPI [] GI: Denies abdominal pain, nausea, vomiting, bloody stools or diarrhea [] : Denies dysuria or hematuria [] Musculoskeletal: Denies back pain or joint pain [] Integument: Denies rash or skin lesions [] Neurologic: Denies headache, focal weakness or sensory changes [] Endocrine: Denies polyuria or polydipsia [] All other systems were reviewed and found to be within normal limits, except as documented in this note. Current Medications Current Medications Current Medications Medications (Trade) Dose Ordered Sig/Marycruz Start Time Stop Time Status Last Admin Dose Admin Ondansetron HCl (Zofran) 4 mg 1X ONCE 09/05/18 12:00 09/05/18 12:01 DC 09/05/18 12:12 4 MG Sodium Chloride 1,000 ml @ 1,000 mls/hr 1X ONCE 09/05/18 12:00 09/05/18 12:59 DC 09/05/18 12:10 1,000 MLS/HR Allergies Allergies Allergies Coded Allergies Type Severity Reaction Last Updated Verified Penicillins Allergy Unknown 10/01/16 Yes Physical Exam Physical Exam Constitutional: Well developed, well nourished, no acute distress, non-toxic appearance. [] HENT: Normocephalic, atraumatic, bilateral external ears normal, oropharynx moist, no oral exudates, nose normal. [] Eyes: PERRLA, EOMI, conjunctiva normal, no discharge. [] Neck: Normal range of motion, no tenderness, supple, no stridor. [] Cardiovascular:Heart rate regular rhythm, no murmur [] Lungs & Thorax: Bilateral breath sounds clear to auscultation [] Abdomen: Bowel sounds normal, soft, no tenderness, no masses, no pulsatile masses. [] Skin: Warm, dry, no erythema, no rash. [] Back: No tenderness, no CVA tenderness. [] Extremities: No tenderness, no cyanosis, no clubbing, ROM intact, no edema. [] Neurologic: Alert and oriented X 3, normal motor function, normal sensory function, no focal deficits noted. [] Psychologic: Affect normal, judgement normal, mood normal. : Pubic hair shaved, normal external exam, speculum exam shows a thin whitish discharge. No signs of bleeding. [] Current Patient Data Vital Signs Vital Signs Date Time Temp Pulse Resp B/P (MAP) Pulse Ox O2 Delivery O2 Flow Rate FiO2 09/05/18 13:00 65 20 172/79 (110) 100 Room Air 09/05/18 11:40 98.4 Lab Results Laboratory Tests Test 09/05/18 11:50 09/05/18 11:53 09/05/18 12:03 Urine Opiates Screen Neg (NEG) Urine Methadone Screen Neg (NEG) Urine Barbiturates Neg (NEG) Urine Phencyclidine Screen Neg (NEG) Urine Amphetamine/Methamphetamine Pos (NEG) Urine Benzodiazepines Screen Neg (NEG) Urine Cocaine Screen Neg (NEG) Urine Cannabinoids Screen Pos (NEG) Urine Ethyl Alcohol Neg (NEG) POC Urine HCG, Qualitative hcg positive (Negative) White Blood Count 6.4 x10^3/uL (4.0-11.0) Red Blood Count 4.10 x10^6/uL (3.50-5.40) Hemoglobin 12.9 g/dL (12.0-15.5) Hematocrit 38.4 % (36.0-47.0) Mean Corpuscular Volume 94 fL (79-100) Mean Corpuscular Hemoglobin 32 pg (25-35) Mean Corpuscular Hemoglobin Concent 34 g/dL (31-37) Red Cell Distribution Width 13.9 % (11.5-14.5) Platelet Count 176 x10^3/uL (140-400) Neutrophils (%) (Auto) 64 % (31-73) Lymphocytes (%) (Auto) 26 % (24-48) Monocytes (%) (Auto) 6 % (0-9) Eosinophils (%) (Auto) 3 % (0-3) Basophils (%) (Auto) 1 % (0-3) Neutrophils # (Auto) 4.1 x10^3uL (1.8-7.7) Lymphocytes # (Auto) 1.6 x10^3/uL (1.0-4.8) Monocytes # (Auto) 0.4 x10^3/uL (0.0-1.1) Eosinophils # (Auto) 0.2 x10^3/uL (0.0-0.7) Basophils # (Auto) 0.0 x10^3/uL (0.0-0.2) Maternal Serum HCG Beta Subunit 42058 mIU/mL (0-6) H Sodium Level 138 mmol/L (136-145) Potassium Level 4.1 mmol/L (3.5-5.1) Chloride Level 107 mmol/L (98-107) Carbon Dioxide Level 20 mmol/L (21-32) L Anion Gap 11 (6-14) Blood Urea Nitrogen 11 mg/dL (7-20) Creatinine 0.6 mg/dL (0.6-1.0) Estimated GFR (Cockcroft-Gault) 113.8 BUN/Creatinine Ratio 18 (6-20) Glucose Level 97 mg/dL (70-99) Calcium Level 8.7 mg/dL (8.5-10.1) Total Bilirubin 0.3 mg/dL (0.2-1.0) Aspartate Amino Transferase (AST) 22 U/L (15-37) Alanine Aminotransferase (ALT) 16 U/L (14-59) Alkaline Phosphatase 88 U/L (46-116) Total Protein 7.0 g/dL (6.4-8.2) Albumin 3.3 g/dL (3.4-5.0) L Albumin/Globulin Ratio 0.9 (1.0-1.7) L EKG EKG [] Radiology/Procedures Radiology/Procedures [] Impressions: Examination: Ultrasound first trimester HISTORY: Abdominal pain, cramping COMPARISON: None available. FINDINGS: The uterus measures 9.7 x 8.2 x 6.0 cm. Cervical length measures 3.3 cm. The right ovary measures 4.0 x 2.1 x 2.9 cm. The left ovary measures 2.5 x 1.4 x 2.3 cm. Blood flow identified in the right and left ovaries. Intrauterine gestational sac identified. pole identified with heart rate of 178 bpm. The crown-rump length measures 2 cm corresponding to 8 weeks and 4 days. LMP is 07/18/2018 Clinical age 7 weeks and 0 days with expected date of delivery by LMP 04/24/2019. Estimated date of delivery by ultrasound is 04/13/2019. IMPRESSION: Single living intrauterine with heart rate of 178 bpm. Electronically signed by: Inocencio Wyatt MD (09/05/2018 1:27 PM) [id number] DICTATED AND SIGNED BY: INOCENCIO WYATT MD DATE: 09/05/18 1319 CC: NIKA FAIRCHILD DO; MIKE PRUITT MD Course & Med Decision Making Course & Med Decision Making Pertinent Labs and Imaging studies reviewed. (See chart for details) The patient is . She is also positive for amphetamine use. Her labs are unremarkable. Her ultrasound shows a single live intrauterine with a heart rate 178. See official report for details. I have strongly advised patient to stop using drugs. She has stated that she will stop. [] Dragon Disclaimer Dragon Disclaimer This electronic medical record was generated, in whole or in part, using a voice recognition dictation system. Departure Departure: Impression: Primary Impression: Additional Impressions: Hypertension Bacterial vaginosis Concern about STD in female without diagnosis Amphetamine abuse Marijuana abuse Disposition: 01 HOME, SELF-CARE Condition: STABLE Referrals: MIKE PRUITT MD (PCP) Patient Instructions: Alcohol and Drug Addiction, Finding Treatment, Bacterial Vaginosis, [id number], - First Trimester, [id number], Sexually Transmitted Disease Problem Qualifiers Primary Impression: Weeks of gestation: 8 weeks Qualified Codes: Z3A.08 - 8 weeks gestation of Additional Impressions: Hypertension Hypertension type: essential hypertension Qualified Codes: I10 - Essential ( primary) hypertension NIKA FAIRCHILD DO Sep 05, 2018 13:24
--- NOTE | 2018-09-05 13:30 | RAD ---
Examination: Ultrasound first trimester HISTORY: Abdominal pain, cramping COMPARISON: None available. FINDINGS: The uterus measures 9.7 x 8.2 x 6.0 cm. Cervical length measures 3.3 cm. The right ovary measures 4.0 x 2.1 x 2.9 cm. The left ovary measures 2.5 x 1.4 x 2.3 cm. Blood flow identified in the right and left ovaries. Intrauterine gestational sac identified. pole identified with heart rate of 178 bpm. The crown-rump length measures 2 cm corresponding to 8 weeks and 4 days. LMP is 07/18/2018 Clinical age 7 weeks and 0 days with expected date of delivery by LMP 04/24/2019. Estimated date of delivery by ultrasound is 04/13/2019. IMPRESSION: Single living intrauterine with heart rate of 178 bpm. Electronically signed by: Inocencio Wyatt MD (09/05/2018 1:27 PM) [id number]
[2018-09-05 13:56] LABS: BACTERIA,URINE FEW /HPF (0-FEW); BILIRUBIN,URINE NEG (NEG); CLARITY,URINE CLEAR; COLOR,URINE YELLOW; GLUCOSE,URINE NEG (NEG); NITRITE,URINE NEG (NEG); SQUAMOUS EPITHELIAL CELL,UR FEW /LPF; UROBILINOGEN,URINE 0.2 mg/dL (0.2 mg/dL)
[2018-09-05] MEDS ORDERED: cefTRIAXone IM 250 MG VIAL IM ONE (14:45)
[2018-09-05] MEDS ORDERED: AZITHROMYCIN 250 MG TABLET. PO ONE (14:45)
[2018-09-05] MEDS ORDERED: metroNIDAZOLE 500 MG TABLET PO ONE (14:45)
[2018-09-05 15:00] VITALS: BP 160/100
[2018-09-06 14:10] LABS: CHLAMYDIA PROBE Negative (Negative)
== END 2018-09-05 15:02 | disposition home or self-care (01) ==
LOC: ER 11:31
DX: O16.1 Unspecified maternal hypertension, first trimester (principal); O23.591 Infection of other part of genital tract in pregnancy, first trimester; O99.341 Other mental disorders complicating pregnancy, first trimester; O99.321 Drug use complicating pregnancy, first trimester; F15.10 Other stimulant abuse, uncomplicated; F12.10 Cannabis abuse, uncomplicated; F31.9 Bipolar disorder, unspecified; I25.2 Old myocardial infarction; Z20.2 Contact with and (suspected) exposure to infections with a predominantly sexual mode of transmission; Z3A.08 8 weeks gestation of pregnancy; Z90.49 Acquired absence of other specified parts of digestive tract; Z98.890 Other specified postprocedural states; Z88.0 Allergy status to penicillin
CPT/HCPCS: 36415; 76801; 80053; 80307; 81001; 81025; 84702; 85025; 87491; 87591; 96372; 96374; 99284; J0456; J0696; J2405; Q0111; J7030

== ENCOUNTER 2018-11-27 11:47 | Emergency (ER) | payer MEDICAID, OTHER ==
[~2018-11-27] VITALS: Ht 160 cm; Wt 40.4 kg
--- NOTE | 2018-11-27 12:12 | PHYS DOC ---
Past History Past Medical History: Bipolar, Depression, Hypertension, [place], Other Additional Past Medical Histor: Alcohol Abuse Past Surgical History: Appendectomy, , Other Alcohol Use: Occasionally Drug Use: Marijuana, Methamphetamine, Opiates Adult General Chief Complaint Chief Complaint: ABDOMINAL PAIN IN [facility] Patient is a 37-year-old female presents with abdominal pain, nausea, vomiting, and diarrhea. This is been present for the past week. She reports feeling lightheaded with standing up. Diffuse abdominal cramping. Patient is approxim ately 17 weeks . Denies any vaginal bleeding. Notes that there is some dysuria. No blood in the stool or emesis. No recent travel. Nothing seems to make it better or worse. She has not contacted her primary care team for this.[] Review of Systems Review of Systems Constitutional: Denies fever or chills [] Eyes: Denies change in visual acuity, redness, or eye pain [] HENT: Denies nasal congestion or sore throat [] Respiratory: Denies cough or shortness of breath [] Cardiovascular: No additional information not addressed in HPI [] GI: See history of present illness[] : Denies hematuria [] Musculoskeletal: Denies back pain or joint pain [] Integument: Denies rash or skin lesions [] Neurologic: Denies headache, focal weakness or sensory changes [] Endocrine: Denies polyuria or polydipsia [] All other systems were reviewed and found to be within normal limits, except as documented in this note. Allergies Allergies Allergies Coded Allergies Type Severity Reaction Last Updated Verified Penicillins Allergy Unknown 10/01/16 Yes Physical Exam Physical Exam Constitutional: Well developed, well nourished, no acute distress, non-toxic appearance. [] HENT: Normocephalic, atraumatic, bilateral external ears normal, oropharynx moist, no oral exudates, nose normal. [] Eyes: PERRLA, EOMI, conjunctiva normal, no discharge. [] Neck: Normal range of motion, no tenderness, supple, no stridor. [] Cardiovascular:Heart rate regular rhythm, no murmur [] Lungs & Thorax: Bilateral breath sounds clear to auscultation [] Abdomen: Bowel sounds normal, soft, no tenderness, no masses, no pulsatile masses. [] Skin: Warm, dry, no erythema, no rash. [] Back: No tenderness, no CVA tenderness. [] Extremities: No tenderness, no cyanosis, no clubbing, ROM intact, no edema. [] Neurologic: Alert and oriented X 3, normal motor function, normal sensory function, no focal deficits noted. [] Psychologic: Affect normal, judgement normal, mood normal. [] Current Patient Data Vital Signs Vital Signs Date Time Temp Pulse Resp B/P (MAP) Pulse Ox O2 Delivery O2 Flow Rate FiO2 11/27/18 12:01 97.8 74 18 97 Room Air EKG EKG [] Radiology/Procedures Radiology/Procedures PROCEDURE: OB > 14 WKS W/TV Examination: Obstetric ultrasound greater than 14 weeks HISTORY: History of lower abdominal pain COMPARISON: None available FINDINGS: The cervical length measures 3.2 cm. The placenta appears low-lying or marginal. Placental grade 0. Single living intrauterine identified with heart rate of 157 bpm LMP is 06/17/2018. Clinical age is 23 weeks and 2 days with expected date of delivery 03/24/2019 by LMP. Ultrasound age is 20 weeks and 1 day with expected date of delivery by ultrasound 04/15/2019 Estimated weight 347 g.. Cephalic index is 79.8 Head circumference to abdominal circumference ratio 1.14 Femur length to biparietal diameter ratio 73.5 Femur length abdominal circumference 22.5 Femur length to head circumference 19.7. The biparietal diameter measures 4.6 cm corresponding to 19 weeks and 6 days. Head circumference measures 17.1 cm corresponding to 19 weeks and 5 days. Abdominal circumference measures 15.01 cm corresponding 20 weeks and 2 days. Femur length measures 3.3 cm corresponding 20 weeks and 4 days. movement is seen 4 chamber heart, cord insertion, stomach, brain aren't visualized. position is cephalic. IMPRESSION: 1. Single living intrauterine with heart rate of 157 bpm. 2. The placenta is adjacent to the cervix probably low-lying placenta or marginal placenta. Placenta previa is not completely excluded. Close interval follow-up examination is recommended.[] Course & Med Decision Making Course & Med Decision Making Pertinent Labs and Imaging studies reviewed. (See chart for details) ED course: Patient arrived, was placed in bed, and tolerated exam well. She was transported to and from [place] emergency department with any complications. After the return of the laboratory and imaging findings, these were discussed with the patient voiced understanding. All questions were answered. Patient was discharged in an improved condition. Medical decision making: There is no evidence of an ectopic, miscarriage, urinary tract infection, by mouth intolerance, significant electrolyte abnormality, nor HELLP syndrome. Believe the patient does need management of her hypertension by her primary care/OB team, her blood pressure improved to 140 systolic while in the emergency department. [] Dragon Disclaimer Dragon Disclaimer This electronic medical record was generated, in whole or in part, using a voice recognition dictation system. Departure Departure: Impression: Primary Impression: Additional Impressions: Nausea vomiting and diarrhea Hypertension Disposition: HOME, SELF-CARE Condition: IMPROVED Referrals: MIKE PRUITT MD (PCP) Follow-up in 2 days Patient Instructions: Abdominal Pain During , DASH Diet, Nausea and Vomiting Additional Instructions: Drink plenty of fluids, frequent small sips. No fatty foods, no milk, and no pepper for the next 48 hours. For the next 48 hours eat a diet rich in carbohydrates with foods such as bananas, rice, applesauce, and toast. Follow-up with your regular doctor in 2 days. Return to the ER if unable to tolerate liquids, blood in stool or emesis, or any other concerns. Scripts Ondansetron Hcl (ZOFRAN) 4 Mg Tablet 1 TAB PO Q6HRS for nausea or vomiting, #20 TAB Prov: THA PERKINS DO 11/27/18 Acetaminophen (TYLENOL) 325 Mg Tablet 1-2 TAB PO QID for PAIN, #60 TAB 0 Refills Prov: THA PERKINS DO 11/27/18 Dicyclomine Hcl (DICYCLOMINE HCL) 20 Mg Tablet 1 TAB PO TID for abd pain/cramping, #30 TAB 0 Refills Prov: THA PERKINS DO 11/27/18 Problem Qualifiers Primary Impression: Weeks of gestation: 20 weeks Qualified Codes: Z3A.20 - 20 weeks gestation of Additional Impressions: Hypertension Hypertension type: unspecified Qualified Codes: I10 - Essential (primary) hypertension THA PERKINS DO November 27, 2018 12:12
[2018-11-27] MEDS ORDERED: IV NORMAL SALINE 1,000ML 1,000 ML IV ONE (12:15)
[2018-11-27 12:33] LABS: BASO # 0.1 x10^3/uL (0.0-0.2); BASO % 1 % (0-3); EOS # 0.1 x10^3/uL (0.0-0.7); EOS % 1 % (0-3); HEMATOCRIT 39.4 % (36.0-47.0); HEMOGLOBIN 13.6 g/dL (12.0-15.5); LYMPH # 1.6 x10^3/uL (1.0-4.8); LYMPH % 17 % (24-48); MEAN CORPUSCULAR HEMOGLOBIN 33 pg (25-35); MEAN CORPUSCULAR HGB CONC 35 g/dL (31-37); MEAN CORPUSCULAR VOLUME 94 fL (79-100); MONO # 0.4 x10^3/uL (0.0-1.1); MONO % 4 % (0-9); NEUT # 7.1 x10^3uL (1.8-7.7); NEUT % 76 % (31-73); PLATELET COUNT 168 x10^3/uL (140-400); RED BLOOD COUNT 4.18 x10^6/uL (3.50-5.40); RED CELL DISTRIBUTION WIDTH 13.6 % (11.5-14.5); WHITE BLOOD COUNT 9.2 x10^3/uL (4.0-11.0)
[2018-11-27 12:46] LABS: ALBUMIN 3.2 g/dL (3.4-5.0); ALBUMIN/GLOBULIN RATIO 0.7 (1.0-1.7); CALCIUM 9.1 mg/dL (8.5-10.1); CREATININE 0.6 mg/dL (0.6-1.0); GFR 113.8; POTASSIUM 3.7 mmol/L (3.5-5.1); TOTAL BILIRUBIN 0.3 mg/dL (0.2-1.0); TOTAL PROTEIN 7.6 g/dL (6.4-8.2)
[2018-11-27 12:55] LABS: BACTERIA,URINE 0 /HPF (0-FEW); BILIRUBIN,URINE NEG (NEG); CLARITY,URINE CLOUDY; COLOR,URINE YELLOW; GLUCOSE,URINE NEG (NEG); NITRITE,URINE NEG (NEG); SQUAMOUS EPITHELIAL CELL,UR FEW /LPF; UROBILINOGEN,URINE 0.2 mg/dL (0.2 mg/dL); WBC,URINE 0 /HPF (0-4)
[2018-11-27 12:56] LABS: AMORPHOUS SEDIMENT,UR PRESENT /HPF
[2018-11-27] MEDS ORDERED: ONDANSETRON PF 4 MG/2 ML VIAL. IV ONE (13:30)
--- NOTE | 2018-11-27 13:42 | RAD ---
Examination: Obstetric ultrasound greater than 14 weeks HISTORY: History of lower abdominal pain COMPARISON: None available FINDINGS: The cervical length measures 3.2 cm. The placenta appears low-lying or marginal. Placental grade 0. Single living intrauterine identified with heart rate of 157 bpm LMP is 06/17/2018. Clinical age is 23 weeks and 2 days with expected date of delivery 03/24/2019 by LMP. Ultrasound age is 20 weeks and 1 day with expected date of delivery by ultrasound 04/15/2019 Estimated weight 347 g.. Cephalic index is 79.8 Head circumference to abdominal circumference ratio 1.14 Femur length to biparietal diameter ratio 73.5 Femur length abdominal circumference 22.5 Femur length to head circumference 19.7. The biparietal diameter measures 4.6 cm corresponding to 19 weeks and 6 days. Head circumference measures 17.1 cm corresponding to 19 weeks and 5 days. Abdominal circumference measures 15.01 cm corresponding 20 weeks and 2 days. Femur length measures 3.3 cm corresponding 20 weeks and 4 days. movement is seen 4 chamber heart, cord insertion, stomach, brain aren't visualized. position is cephalic. IMPRESSION: 1. Single living intrauterine with heart rate of 157 bpm. 2. The placenta is adjacent to the cervix probably low-lying placenta or marginal placenta. Placenta previa is not completely excluded. Close interval follow-up examination is recommended. Electronically signed by: Inocencio Wyatt MD (11/27/2018 1:39 PM) [facility]
[2018-11-27 13:57] VITALS: BP 160/101
[2018-11-27] MEDS ORDERED: DICY20TA3 PO (14:08)
[2018-11-27] MEDS ORDERED: ACET325T9 PO (14:08)
[2018-11-27] MEDS ORDERED: ONDA4TAB7 PO (14:08)
== END 2018-11-27 14:14 | disposition home or self-care (01) ==
LOC: ER 11:47
DX: O21.9 Vomiting of pregnancy, unspecified (principal); R19.7 Diarrhea, unspecified; O16.2 Unspecified maternal hypertension, second trimester; O99.342 Other mental disorders complicating pregnancy, second trimester; F31.9 Bipolar disorder, unspecified; Z3A.20 20 weeks gestation of pregnancy; Z90.89 Acquired absence of other organs; Z98.890 Other specified postprocedural states; Z88.0 Allergy status to penicillin
CPT/HCPCS: 36415; 76805; 76817; 80053; 81001; 83690; 85025; 86900; 86901; 96361; 96374; 99285; J2405; J7030

== ENCOUNTER 2019-02-16 20:44 | Emergency (ER) | payer MEDICAID, OTHER ==
[~2019-02-16] VITALS: Ht 160 cm; Wt 97.5 kg
[~2019-02-16 20:44] MED LIST changes: +ACET325T9 PO; +DICY20TA3 PO; +ONDA4TAB7 PO
[2019-02-16] MEDS ORDERED: IV RINGERS SOLUTION,LACTATED 1,000 ML IV SCH (21:12)
[2019-02-16] MEDS ORDERED: ONDANSETRON PF 4 MG/2 ML VIAL. IV ONE (21:15)
[2019-02-16] MEDS ORDERED: MAGNESIUM SULFATE 2GM 50 ML IV ONE (21:15)
--- NOTE | 2019-02-16 21:28 | ED.ADGEN ---
Past History Past Medical History: Hypertension, Other Additional Past Medical Histor: Alcohol Abuse Past Surgical History: Appendectomy, , Other Alcohol Use: None Drug Use: Marijuana Adult General Chief Complaint Chief Complaint ".. I worried.. I may be getting eclampsia.. I have had with all my previous pregnancies... HPI HPI Patient is a 38 year old female who presents with complaints of new ankle swelling and hypertension. Patient has had 7 pregnancies , 1 Miscarry. All 5 C- sections for pre-or eclampsia presentation. Patient has had previous abdomen surgery of appendectomy. Has had surgeries on her left knee right toe and thumb. Patient denies any trauma. Patient denies specific ill contacts. Patient does smoke both tobacco and marijuana. Patient normally follows with Dr. Ledesma at [facility]. Last visit at his office was 2 weeks ago with a normal ultrasound. Patient has had chlamydia and gonorrhea and vaginal infections. no history of hiv. no history of hepatitis. does not take vitamins for that make her nauseated. his head approximately 10 lifetime sexual partners. Pt. hx previous HTN did take Labetalol. Pt, not currently on any BP meds. Review of Systems Review of Systems Constitutional: Denies fever or chills [] Eyes: Denies change in visual acuity, redness, or eye pain [] HENT: Denies nasal congestion or sore throat [] Respiratory: Denies cough or shortness of breath [] Cardiovascular: No additional information not addressed in HPI [] GI: Denies abdominal pain, nausea, vomiting, bloody stools or diarrhea [] : Denies dysuria or hematuria [] Musculoskeletal: Denies back pain or joint pain, complaints of ankle swelling Integument: Denies rash or skin lesions [] Neurologic: Denies headache, focal weakness or sensory changes [] Endocrine: Denies polyuria or polydipsia [] All other systems were reviewed and found to be within normal limits, except as documented in this note. Family History Family History Noncontributory Current Medications Current Medications Current Medications Medications (Trade) Dose Ordered Sig/Marycruz Start Time Stop Time Status Last Admin Dose Admin Hydralazine HCl (Apresoline) 10 mg STK-MED ONCE 02/17/19 01:07 02/17/19 01:18 DC Labetalol HCl (Trandate) 100 mg STK-MED ONCE 02/17/19 00:31 02/17/19 00:31 DC Lactated Ringer's 1,000 ml @ 1,000 mls/hr Q1H 02/16/19 21:12 02/16/19 22:11 DC 02/16/19 22:03 1,000 MLS/HR Magnesium Sulfate 50 ml @ 25 mls/hr 1X ONCE 02/16/19 21:15 02/16/19 23:14 DC 02/16/19 22:07 25 MLS/HR Morphine Sulfate (Morphine 10mg Syringe) 10 mg 1X ONCE 02/16/19 23:00 02/16/19 23:01 DC 02/16/19 22:58 10 MG Ondansetron HCl (Zofran) 8 mg 1X ONCE 02/16/19 21:15 02/16/19 21:17 DC Allergies Allergies Allergies Coded Allergies Type Severity Reaction Last Updated Verified Penicillins Allergy Unknown 10/01/16 Yes Physical Exam Physical Exam Constitutional: , no acute distress, non-toxic appearance. [] HENT: Normocephalic, atraumatic, bilateral external ears normal, oropharynx moist, no oral exudates, nose normal. [] Eyes: PERRLA, EOMI, conjunctiva normal, no discharge. [] Neck: Normal range of motion, no tenderness, supple, no stridor. [] Cardiovascular:Heart rate regular rhythm, no murmur [] Lungs & Thorax: Bilateral breath sounds clear to auscultation [] Abdomen: Bowel sounds normal, soft, no tenderness, no masses, no pulsatile masses. [] Gravid. Old surgery scars. Pelvic, no bleeding. No cervical motion tenderness. Rectal hard stool in vault. FHR= 150 range. Skin: Warm, dry, no erythema, no rash. [] Back: No tenderness, no CVA tenderness. [] Extremities: No tenderness, no cyanosis, no clubbing, ROM intact, trace ankle edema. [] Neurologic: Alert and oriented X 3, normal motor function, normal sensory function, no focal deficits noted. [DTRs +2 patella and brachial.] Psychologic: Affect anxious, judgement normal, mood normal. [] Current Patient Data Vital Signs Vital Signs Date Time Temp Pulse Resp B/P (MAP) Pulse Ox O2 Delivery O2 Flow Rate FiO2 02/17/19 01:10 65 185/116 02/17/19 00:36 20 100 Room Air 02/16/19 20:47 98.6 Lab Results Laboratory Tests Test 02/16/19 20:50 02/16/19 21:20 02/16/19 21:48 Urine Collection Type Unknown Urine Color Yellow Urine Clarity Clear Urine pH 5.5 Urine Specific [place] 1.025 Urine Protein Trace (NEG-TRACE) Urine Glucose (UA) Neg mg/dL (NEG) Urine Ketones (Stick) Neg mg/dL (NEG) Urine Blood Small (NEG) Urine Nitrite Neg (NEG) Urine Bilirubin Neg (NEG) Urine Urobilinogen Dipstick 0.2 mg/dL (0.2 mg/dL) Urine Leukocyte Esterase Neg (NEG) Urine RBC 1-2 /HPF (0-2) Urine WBC 1-4 /HPF (0-4) Urine Squamous Epithelial Cells Occ /LPF Urine Bacteria Few /HPF (0-FEW) Urine Mucus Mod /LPF Urine Opiates Screen Neg (NEG) Urine Methadone Screen Neg (NEG) Urine Barbiturates Neg (NEG) Urine Phencyclidine Screen Neg (NEG) Urine Amphetamine/Methamphetamine Neg (NEG) Urine Benzodiazepines Screen Neg (NEG) Urine Cocaine Screen Neg (NEG) Urine Cannabinoids Screen Pos (NEG) Urine Ethyl Alcohol Neg (NEG) White Blood Count 11.9 x10^3/uL (4.0-11.0) H Red Blood Count 3.77 x10^6/uL (3.50-5.40) Hemoglobin 12.0 g/dL (12.0-15.5) Hematocrit 35.7 % (36.0-47.0) L Mean Corpuscular Volume 95 fL (79-100) Mean Corpuscular Hemoglobin 32 pg (25-35) Mean Corpuscular Hemoglobin Concent 34 g/dL (31-37) Red Cell Distribution Width 13.1 % (11.5-14.5) Platelet Count 156 x10^3/uL (140-400) Neutrophils (%) (Auto) 78 % (31-73) H Lymphocytes (%) (Auto) 15 % (24-48) L Monocytes (%) (Auto) 5 % (0-9) Eosinophils (%) (Auto) 2 % (0-3) Basophils (%) (Auto) 0 % (0-3) Neutrophils # (Auto) 9.2 x10^3uL (1.8-7.7) H Lymphocytes # (Auto) 1.8 x10^3/uL (1.0-4.8) Monocytes # (Auto) 0.6 x10^3/uL (0.0-1.1) Eosinophils # (Auto) 0.3 x10^3/uL (0.0-0.7) Basophils # (Auto) 0.0 x10^3/uL (0.0-0.2) Maternal Serum HCG Beta Subunit 9330 mIU/mL (0-6) H Sodium Level 137 mmol/L (136-145) Potassium Level 3.9 mmol/L (3.5-5.1) Chloride Level 106 mmol/L (98-107) Carbon Dioxide Level 21 mmol/L (21-32) Anion Gap 10 (6-14) Blood Urea Nitrogen 14 mg/dL (7-20) Creatinine 0.7 mg/dL (0.6-1.0) Estimated GFR (Cockcroft-Gault) 94.7 Glucose Level 87 mg/dL (70-99) Calcium Level 8.6 mg/dL (8.5-10.1) Total Bilirubin 0.2 mg/dL (0.2-1.0) Direct Bilirubin 0.1 mg/dL (0.0-0.2) Aspartate Amino Transferase (AST) 14 U/L (15-37) L Alanine Aminotransferase (ALT) 16 U/L (14-59) Alkaline Phosphatase 85 U/L (46-116) Total Protein 6.5 g/dL (6.4-8.2) Albumin 2.6 g/dL (3.4-5.0) L Lipase 217 U/L (73-393) EKG EKG I interpretation EKG shows a sinus rhythm at 67. No findings acute STEMI [] Radiology/Procedures Radiology/Procedures [][address] [address] IMAGING REPORT Signed PATIENT: ROSS QUISPE ACCOUNT: [id number] : 1980 LOCATION: ER AGE: 38 SEX: F EXAM STATUS: REG ER ORD. PHYSICIAN: EFREN SADLER MD REASON: preg. cramps hx pre-eclmapsia PROCEDURE: OB LIMITED INDICATION: Cramping in COMPARISON: None. TECHNIQUE: Grayscale and color ultrasound images uterus and adnexa. FINDINGS: Intrauterine is identified. The head is to the maternal left in transverse position at time of exam. Placenta is anterior. Amniotic fluid index 13.1. The placental edge is located approximately 4.3 cm from the internal cervical os. heartbeat is 144. Cervix is 5.7 cm. Biparietal diameter 79 mm, 31 weeks 6 day Head circumference 292 mm, 32 week 2 day Abdominal circumference 268 mm, 30 weeks 6 day Femur length 61 mm, 31 week 6 day Estimated weight 1758 g. 37th percentile IMPRESSION: 1. Intrauterine is identified with estimated gestational age of 31 weeks and 5 days with positive heartbeat. Electronically signed by: Addis Domínguez MD (02/16/2019 11:59 PM) [facility] DICTATED AND SIGNED BY: ADDIS DOMÍNGUEZ MD DATE: 02/16/19 6600 CC: EFREN SADLER MD; MIKE PRUITT MD ~ Course & Med Decision Making Course & Med Decision Making Pertinent Labs and Imaging studies reviewed. (See chart for details) Reviewed presentation, testing and tx. plan with OB national investigative producer for Dr. Ida Saucedo. Pt. to call Dr. Ledesma in am for follow up. Avoid tobacco and marijuana. Plan to give Tylenol however patient heart rate was 61 at time of discharge. Will give patient Hydralazine 10 mg tid. . Must follow-up pending labs and cultures. ] Final Impression Final Impression 1. Preeclampsia 2. Intrauterine Preg. 3. Accelerated hypertension 4. Tobacco and marijuana use Dragon Disclaimer Dragon Disclaimer This electronic medical record was generated, in whole or in part, using a voice recognition dictation system. Dragon Disclaimer This chart was dictated in whole or in part using Voice Recognition software in a busy, high-work load, and often noisy Emergency Department environment. It may contain unintended and wholly unrecognized errors or omissions. EFREN SADLER MD Feb 16, 2019 21:28
[2019-02-16 21:41] LABS: BASO % 0 % (0-3); EOS # 0.3 x10^3/uL (0.0-0.7); EOS % 2 % (0-3); HEMATOCRIT 35.7 % (36.0-47.0); LYMPH # 1.8 x10^3/uL (1.0-4.8); LYMPH % 15 % (24-48); MEAN CORPUSCULAR HEMOGLOBIN 32 pg (25-35); MEAN CORPUSCULAR HGB CONC 34 g/dL (31-37); MEAN CORPUSCULAR VOLUME 95 fL (79-100); MONO # 0.6 x10^3/uL (0.0-1.1); MONO % 5 % (0-9); NEUT # 9.2 x10^3uL (1.8-7.7); NEUT % 78 % (31-73); PLATELET COUNT 156 x10^3/uL (140-400); RED BLOOD COUNT 3.77 x10^6/uL (3.50-5.40); RED CELL DISTRIBUTION WIDTH 13.1 % (11.5-14.5); WHITE BLOOD COUNT 11.9 x10^3/uL (4.0-11.0)
[2019-02-16 22:02] LABS: BACTERIA,URINE FEW /HPF (0-FEW); BILIRUBIN,URINE NEG (NEG); CLARITY,URINE CLEAR; COLOR,URINE YELLOW; GLUCOSE,URINE NEG (NEG); NITRITE,URINE NEG (NEG); SQUAMOUS EPITHELIAL CELL,UR OCC /LPF; UROBILINOGEN,URINE 0.2 mg/dL (0.2 mg/dL)
[2019-02-16 22:31] LABS: ALBUMIN 2.6 g/dL (3.4-5.0); CALCIUM 8.6 mg/dL (8.5-10.1); CREATININE 0.7 mg/dL (0.6-1.0); DIRECT BILIRUBIN 0.1 mg/dL (0.0-0.2); GFR 94.7; POTASSIUM 3.9 mmol/L (3.5-5.1); TOTAL BILIRUBIN 0.2 mg/dL (0.2-1.0); TOTAL PROTEIN 6.5 g/dL (6.4-8.2)
[2019-02-16 22:59] LABS: BARBITURATES NEG (NEG); BENZODIAZEPINES NEG (NEG); CANNABINOIDS POS (NEG); COCAINE NEG (NEG); METHADONE NEG (NEG); OPIATES NEG (NEG); PHENCYCLIDINE NEG (NEG)
[2019-02-16] MEDS ORDERED: MORPHINE SULFATE 10 MG/ML SYRINGE. SQ ONE (23:00)
[2019-02-16 23:02] LABS: AMPHETAMINE/METHAMPHETAMINE NEG (NEG)
--- NOTE | 2019-02-17 00:02 | RAD ---
INDICATION: Cramping in COMPARISON: None. TECHNIQUE: Grayscale and color ultrasound images uterus and adnexa. FINDINGS: Intrauterine is identified. The head is to the maternal left in transverse position at time of exam. Placenta is anterior. Amniotic fluid index 13.1. The placental edge is located approximately 4.3 cm from the internal cervical os. heartbeat is 144. Cervix is 5.7 cm. Biparietal diameter 79 mm, 31 weeks 6 day Head circumference 292 mm, 32 week 2 day Abdominal circumference 268 mm, 30 weeks 6 day Femur length 61 mm, 31 week 6 day Estimated weight 1758 g. 37th percentile IMPRESSION: 1. Intrauterine is identified with estimated gestational age of 31 weeks and 5 days with positive heartbeat. Electronically signed by: Portillo Rosas MD (02/16/2019 11:59 PM) [facility]
[2019-02-17] MEDS ORDERED: LABE100T5 PO (00:25)
[2019-02-17] MEDS ORDERED: LABETALOL HCL 100 MG TABLET PO ONE (00:30)
[2019-02-17] MEDS ORDERED: LABETALOL HCL 100 MG TABLET ONE (00:31)
[2019-02-17] MEDS ORDERED: HYDR-2867 PO (01:00)
[2019-02-17] MEDS ORDERED: hydrALAZINE 10 MG TABLET ONE (01:07)
[2019-02-17 01:10] VITALS: BP 185/116
[2019-02-17] MEDS ORDERED: hydrALAZINE 10 MG TABLET PO ONE (01:15)
--- NOTE | 2019-02-18 01:53 | EKG ---
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
[2019-02-20 17:07] LABS: CHLAMYDIA PROBE Negative (Negative)
== END 2019-02-17 01:18 | disposition home or self-care (01) ==
LOC: ER 20:44
DX: O14.93 Unspecified pre-eclampsia, third trimester (principal); O16.3 Unspecified maternal hypertension, third trimester; O99.313 Alcohol use complicating pregnancy, third trimester; Z3A.31 31 weeks gestation of pregnancy; Z88.0 Allergy status to penicillin
CPT/HCPCS: 76815; 80048; 80076; 80307; 81001; 83690; 84702; 85025; 86592; 86703; 86705; 86709; 86803; 86850; 86900; 86901; 87340; 87491; 87591; 93005; 96365; 96366; 96372; 99285; J2270; J3475; J7120; 36415

== ENCOUNTER 2019-03-28 19:19 | Emergency (ER) | payer OTHER ==
[~2019-03-28] VITALS: Ht 160 cm; Wt 103.3 kg
[~2019-03-28 19:19] MED LIST changes: +HYDR-2867 PO; +LABE100T5 PO
--- NOTE | 2019-03-28 19:21 | ED.ADGEN ---
Past History Past Medical History: Hypertension, Other Additional Past Medical Histor: Alcohol Abuse Past Surgical History: Appendectomy, , Other Alcohol Use: None Drug Use: Marijuana Adult General Chief Complaint Chief Complaint ".. I had C section on 03/21.. everything seemed to be going good.. but then I started getting pain.. and increased drainage.. some fever .. and chill s and this Lt leg swollen.. Dr. Ledesma is to see me tomorrow.. but I am having too much discomfort and drainage. ..." HPI HPI Patient is a 38 year old FEMALE who presents with above hx and complaints infection / drainage at surgical site. Pt. complaints of fever and chills. Increased edema in Lt. leg. Pt. G6, 6. was on 03/21 at [facility]. Pt. follows with Dr. Sunny cantu and Dr. Baltazar RIDDLE Pt. has follow up apt. tomorrow, but states she is too uncomfortable to wait. Patient has had previous appendectomy. Review of Systems Review of Systems Constitutional: complaints of fever and chills [] Eyes: Denies change in visual acuity, redness, or eye pain [] HENT: Denies nasal congestion or sore throat [] Respiratory: Denies cough or shortness of breath [] Cardiovascular: No additional information not addressed in HPI [] GI: complaints abdominal pain, nausea,. complaints of increase drainage from wound vac. Denies vomiting, bloody stools or diarrhea [] : Denies dysuria or hematuria [] Musculoskeletal: Denies back pain or joint pain []complains of left leg edema and pain Integument: Denies rash or skin lesions [] Neurologic: Denies headache, focal weakness or sensory changes [] Endocrine: Denies polyuria or polydipsia [] All other systems were reviewed and found to be within normal limits, except as documented in this note. Family History Family History Noncontributory Current Medications Current Medications Current Medications Medications (Trade) Dose Ordered Sig/Marycruz Start Time Stop Time Status Last Admin Dose Admin Diphtheria/ Tetanus/Acell Pertussis (Boostrix) 0.5 ml ONCE ONCE 03/28/19 20:15 03/28/19 20:16 DC Enoxaparin Sodium (Lovenox 100mg Syringe) 100 mg 1X ONCE 03/29/19 00:30 03/29/19 00:31 DC 03/29/19 01:35 100 MG Info (Do NOT chart on this entry -- for MONITORING) 1 each PRN DAILY PRN 03/28/19 20:00 03/29/19 02:52 DC Iohexol (Omnipaque 240 Mg/ml) 30 ml 1X ONCE 03/28/19 22:00 03/28/19 22:01 DC Iohexol (Omnipaque 300 Mg/ml) 75 ml 1X ONCE 03/28/19 20:00 03/28/19 20:01 Cancel Iohexol (Omnipaque 350 Mg/ml) 100 ml 1X ONCE 03/28/19 22:00 03/28/19 22:01 DC 03/28/19 22:01 100 ML Lactated Ringer's 1,000 ml @ 1,000 mls/hr Q1H 03/28/19 19:44 03/28/19 20:43 DC 03/28/19 20:54 1,000 MLS/HR Metronidazole 100 ml @ 100 mls/hr 1X ONCE 03/29/19 00:30 03/29/19 01:29 DC 03/29/19 01:35 100 MLS/HR Morphine Sulfate (Morphine 10mg Syringe) 10 mg 1X ONCE 03/29/19 00:45 03/29/19 00:46 DC 03/29/19 01:35 10 MG Ondansetron HCl (Zofran) 4 mg 1X ONCE 03/28/19 21:00 03/28/19 21:01 DC 03/28/19 20:55 4 MG Sodium Chloride 250 ml @ As Directed STK-MED ONCE 03/28/19 20:11 03/28/19 20:12 DC Vancomycin HCl (Vancomycin) 1 gm STK-MED ONCE 03/28/19 20:11 03/28/19 20:12 DC Vancomycin HCl 1 gm/Sodium Chloride 250 ml @ 250 mls/hr 1X ONCE 03/28/19 19:45 03/28/19 20:44 DC 03/28/19 20:31 250 MLS/HR Allergies Allergies Allergies Coded Allergies Type Severity Reaction Last Updated Verified Penicillins Allergy Unknown 10/01/16 Yes Physical Exam Physical Exam Constitutional: Moderate acute distress, non-toxic appearance. [] HENT: Normocephalic, atraumatic, bilateral external ears normal, oropharynx moist, no oral exudates, nose normal. [] Eyes: PERRLA, EOMI, conjunctiva normal, no discharge. [] Neck: Normal range of motion, no tenderness, supple, no stridor. [] Cardiovascular:Heart rate regular rhythm, no murmur [] Lungs & Thorax: Bilateral breath sounds equal apex with scattered wheezes a uscultation [] Abdomen: Bowel sounds normal, soft, complains abdomen tenderness, rebound pain to lower abdomen no masses, no pulsatile masses. [] Ecchymosis and drainage along line. Obese. Old surgery scars. Skin: Warm, dry, no erythema, no rash. [] Back: No tenderness, no CVA tenderness. [] Extremities: , no cyanosis, no clubbing, ROM intact, left leg edema edema. [] Left groin tenderness Neurologic: Alert and oriented X 3, normal motor function, normal sensory function, no focal deficits noted. [] Psychologic: Affect anxious and tearful, judgement normal, mood depressed Current Patient Data Vital Signs Vital Signs Date Time Temp Pulse Resp B/P (MAP) Pulse Ox O2 Delivery O2 Flow Rate FiO2 03/29/19 02:27 72 18 146/92 (110) 98 Room Air 03/28/19 19:19 98.0 Lab Results Laboratory Tests Test 03/28/19 19:25 03/28/19 20:07 03/28/19 20:20 03/28/19 23:50 Urine Collection Type Unknown U cath Urine Color Yellow Yellow Urine Clarity Cloudy Clear Urine pH 5.5 6.5 Urine Specific [place] 1.025 1.010 Urine Protein 30 mg/dl (NEG-TRACE) Neg (NEG-TRACE) Urine Glucose (UA) Neg mg/dL (NEG) Neg mg/dL (NEG) Urine Ketones (Stick) Neg mg/dL (NEG) Neg mg/dL (NEG) Urine Blood Large (NEG) Small (NEG) Urine Nitrite Neg (NEG) Neg (NEG) Urine Bilirubin Neg (NEG) Neg (NEG) Urine Urobilinogen Dipstick 0.2 mg/dL (0.2 mg/dL) 0.2 mg/dL (0.2 mg/dL) Urine Leukocyte Esterase Trace (NEG) Neg (NEG) Urine RBC 20-40 /HPF (0-2) Occ /HPF (0-2) Urine WBC 11-20 /HPF (0-4) Occ /HPF (0-4) Urine Squamous Epithelial Cells Occ /LPF Few /LPF Urine Bacteria Mod /HPF (0-FEW) 0 /HPF (0-FEW) Urine Mucus Slight /LPF Urine Yeast Present /HPF Urine Opiates Screen Pos (NEG) Urine Methadone Screen Neg (NEG) Urine Barbiturates Neg (NEG) Urine Phencyclidine Screen Neg (NEG) Urine Amphetamine/Methamphetamine Neg (NEG) Urine Benzodiazepines Screen Neg (NEG) Urine Cocaine Screen Neg (NEG) Urine Cannabinoids Screen Pos (NEG) Urine Ethyl Alcohol Neg (NEG) POC Urine HCG, Qualitative Borderline hcg level White Blood Count 7.9 x10^3/uL (4.0-11.0) Red Blood Count 2.94 x10^6/uL (3.50-5.40) L Hemoglobin 9.3 g/dL (12.0-15.5) L Hematocrit 28.3 % (36.0-47.0) L Mean Corpuscular Volume 96 fL (79-100) Mean Corpuscular Hemoglobin 32 pg (25-35) Mean Corpuscular Hemoglobin Concent 33 g/dL (31-37) Red Cell Distribution Width 14.6 % (11.5-14.5) H Platelet Count 206 x10^3/uL (140-400) Neutrophils (%) (Auto) 68 % (31-73) Lymphocytes (%) (Auto) 21 % (24-48) L Monocytes (%) (Auto) 8 % (0-9) Eosinophils (%) (Auto) 3 % (0-3) Basophils (%) (Auto) 1 % (0-3) Neutrophils # (Auto) 5.4 x10^3uL (1.8-7.7) Lymphocytes # (Auto) 1.6 x10^3/uL (1.0-4.8) Monocytes # (Auto) 0.6 x10^3/uL (0.0-1.1) Eosinophils # (Auto) 0.2 x10^3/uL (0.0-0.7) Basophils # (Auto) 0.0 x10^3/uL (0.0-0.2) Prothrombin Time 9.9 SEC (9.4-11.4) Prothrombin Time INR 1.0 (0.9-1.1) Activated Partial Thromboplast Time 27 SEC (23-33) D-Dimer ([place]) 3.24 mg/L (0.00-0.50) H Sodium Level 140 mmol/L (136-145) Potassium Level 4.0 mmol/L (3.5-5.1) Chloride Level 106 mmol/L (98-107) Carbon Dioxide Level 25 mmol/L (21-32) Anion Gap 9 (6-14) Blood Urea Nitrogen 27 mg/dL (7-20) H Creatinine 1.1 mg/dL (0.6-1.0) H Estimated GFR (Cockcroft-Gault) 56.2 Glucose Level 115 mg/dL (70-99) H Lactic Acid Level 1.2 mmol/L (0.4-2.0) Calcium Level 8.8 mg/dL (8.5-10.1) Magnesium Level 1.8 mg/dL (1.8-2.4) Total Bilirubin 0.2 mg/dL (0.2-1.0) Direct Bilirubin 0.1 mg/dL (0.0-0.2) Aspartate Amino Transferase (AST) 22 U/L (15-37) Alanine Aminotransferase (ALT) 19 U/L (14-59) Alkaline Phosphatase 84 U/L (46-116) Creatine Kinase 235 U/L (26-192) H Troponin I Quantitative < 0.017 ng/mL (0-0.055) IT-Sws-E-Type Natriuretic Peptide 155 pg/mL (0-124) H Total Protein 6.5 g/dL (6.4-8.2) Albumin 2.7 g/dL (3.4-5.0) L Lipase 211 U/L (73-393) EKG EKG My interpretation EKG shows sinus rhythm at 82 bpm. Does have some bimodal P- wave is in left ventricle leads. Hyperdynamic QRS[] Radiology/Procedures Radiology/Procedures [][address] [address] IMAGING REPORT Signed PATIENT: ROSS QUISPE ACCOUNT: [id number] : 1980 LOCATION: ER AGE: 38 SEX: F EXAM STATUS: REG ER ORD. PHYSICIAN: EFREN SADLER MD REASON: Abd pain post , edema, drainage, elev. ddimer, fever PROCEDURE: CT ANGIO CHEST W ABD PEL W/ Examination: CT ANGIO CHEST W ABD PEL W/ History: Abdominal pain status post . Edema, drainage, elevated d-dimer Comparison/Correlation: None Findings: Axial images of the chest, abdomen, and pelvis were obtained following IV contrast. Chest images were obtained according to pulmonary arteriography protocol. Oral contrast was administered. MIP images provided. Sagittal and coronal reformatted images provided. Pulmonary arterial vasculature is normal with no thromboembolic disease. Calcified granuloma is present at the right upper lung. No suspicious pulmonary nodule or mass. No enlarged thoracic lymph nodes. Heart size is borderline. Small hiatal hernia is present. There is a 2.2 cm diameter calculus gallbladder. Reza's lobe of the liver is present splenomegaly is present with the spleen measuring 14.5 cm longitudinal. Left adrenal gland low-attenuation lesion measuring 2.1 cm. Right adrenal gland is unremarkable. Kidneys are unremarkable. Uterus is distended with heterogeneously fluid within the present representing hemorrhage and/or debris. Moderate quantity of stool in colon noted. No inflammatory change about no enlarged abdominal or pelvic lymph nodes. Extraluminal gas and edema anterior to the urinary uterine fundus is noted. Fluid within the pannus of the low abdominal wall subcutaneous fat measuring up to 14.6 cm transverse by 2.5 cm anteroposterior. Severe L4/5 disc space narrowing is present. Impression: No pulmonary arterial thromboembolic disease. No infiltrate. Small hiatal hernia. Left adrenal gland lesion compatible with a benign adenoma. Heterogeneous fluid within the uterine cavity. Extraluminal gas and edema anterior to the uterine fundus. Correlate with reported history of . Fluid which may represent seroma or late subacute hematoma within the pannus of the low abdominal wall subcutaneous fat measuring up to 14.6 cm transverse by 2.5 cm anteroposterior. Underlying infectious etiology not excluded. Cholelithiasis. Splenomegaly. Electronically signed by: Enrique Block MD (03/28/2019 11:17 PM) [facility] DICTATED AND SIGNED BY: ENRIQUE BLOCK MD DATE: 03/28/19 [id number] CC: EFREN SADLER MD; MIKE PRUITT MD ~ Course & Med Decision Making Course & Med Decision Making Pertinent Labs and Imaging studies reviewed. (See chart for details) Discussed presentation testing and treatment plan with Dr. Rai and Dr. Pineda. Will transfer to [facility] for further eval and tx. Will need US of Lt leg. Discussed with Dr. Pineda, feels Lovenox will not be a risk of post surgical bleeding at this time. [] Final Impression Final Impression 1. Abdomen pain 2. Complaints of increased drainage and inflammation along 3. Fever and chills 4. Anemia hemoglobin 9.3 5. Elevated BUN/creatinine 27/1.1- dehydration 6. Elevated d-dimer 3.24- (may be elevated secondary to surgery versus DVT)[] 7. Urinary tract infection 8. Tobacco and marijuana use 9. Elevated CK 155 10. Malnutrition albumin 2.7 11. S/P C section on 03/21 Dragon Disclaimer Dragon Disclaimer This electronic medical record was generated, in whole or in part, using a voice recognition dictation system. Dragon Disclaimer This chart was dictated in whole or in part using Voice Recognition software in a busy, high-work load, and often noisy Emergency Department environment. It may contain unintended and wholly unrecognized errors or omissions. EFREN SADLER MD Mar 28, 2019 19:21
[2019-03-28] MEDS ORDERED: IV RINGERS SOLUTION,LACTATED 1,000 ML IV SCH (19:44)
[2019-03-28] MEDS ORDERED: VANCOMYCIN 1 GM in IV NORMAL SALINE 250ML 250 ML IV ONE (19:45)
[2019-03-28] MEDS ORDERED: MORPHINE SULFATE 10 MG/ML SYRINGE. SQ ONE (20:00)
[2019-03-28] MEDS ORDERED: CONTRAST GIVEN MC PRN (20:00)
[2019-03-28] MEDS ORDERED: IOHEXOL 300 MG/ML 75 ML VIAL. IV ONE (20:00)
[2019-03-28] MEDS ORDERED: IOHEXOL 240 MG/ML 50ML VIAL. PO ONE ×2 (20:00→22:00)
[2019-03-28] MEDS ORDERED: IV NORMAL SALINE 250ML 250 ML ONE (20:11)
[2019-03-28] MEDS ORDERED: VANCOMYCIN 1 GM VIAL. ONE (20:11)
[2019-03-28] MEDS ORDERED: DIPHTH,PERTUSS(ACELL),TET TOX 0.5 ML DISP.SYRIN. VAX IM ONE (20:15)
[2019-03-28 20:18] LABS: BARBITURATES NEG (NEG); BENZODIAZEPINES NEG (NEG); CANNABINOIDS POS (NEG); COCAINE NEG (NEG); METHADONE NEG (NEG); OPIATES POS (NEG); PHENCYCLIDINE NEG (NEG)
[2019-03-28 20:19] LABS: BILIRUBIN,URINE NEG (NEG); CLARITY,URINE CLOUDY; COLOR,URINE YELLOW; GLUCOSE,URINE NEG (NEG)
[2019-03-28 20:20] LABS: BACTERIA,URINE MOD /HPF (0-FEW); NITRITE,URINE NEG (NEG); RBC,URINE 20-40 /HPF (0-2); SQUAMOUS EPITHELIAL CELL,UR OCC /LPF; UROBILINOGEN,URINE 0.2 mg/dL (0.2 mg/dL); YEAST,URINE PRESENT /HPF
[2019-03-28 20:31] LABS: AMPHETAMINE/METHAMPHETAMINE NEG (NEG)
[2019-03-28] MEDS ORDERED: ONDANSETRON PF 4 MG/2 ML VIAL. IV ONE (21:00)
[2019-03-28 21:02] LABS: BASO % 1 % (0-3); EOS # 0.2 x10^3/uL (0.0-0.7); EOS % 3 % (0-3); HEMATOCRIT 28.3 % (36.0-47.0); HEMOGLOBIN 9.3 g/dL (12.0-15.5); LYMPH # 1.6 x10^3/uL (1.0-4.8); LYMPH % 21 % (24-48); MEAN CORPUSCULAR HEMOGLOBIN 32 pg (25-35); MEAN CORPUSCULAR HGB CONC 33 g/dL (31-37); MEAN CORPUSCULAR VOLUME 96 fL (79-100); MONO # 0.6 x10^3/uL (0.0-1.1); MONO % 8 % (0-9); NEUT # 5.4 x10^3uL (1.8-7.7); NEUT % 68 % (31-73); PLATELET COUNT 206 x10^3/uL (140-400); RED BLOOD COUNT 2.94 x10^6/uL (3.50-5.40); RED CELL DISTRIBUTION WIDTH 14.6 % (11.5-14.5); WHITE BLOOD COUNT 7.9 x10^3/uL (4.0-11.0)
[2019-03-28 21:28] LABS: ALBUMIN 2.7 g/dL (3.4-5.0); CALCIUM 8.8 mg/dL (8.5-10.1); CREATININE 1.1 mg/dL (0.6-1.0); DIRECT BILIRUBIN 0.1 mg/dL (0.0-0.2); GFR 56.2; MAGNESIUM 1.8 mg/dL (1.8-2.4); TOTAL BILIRUBIN 0.2 mg/dL (0.2-1.0); TOTAL PROTEIN 6.5 g/dL (6.4-8.2)
[2019-03-28] MEDS ORDERED: IOHEXOL 350 MG/ML 100 ML VIAL. IV ONE (22:00)
--- NOTE | 2019-03-28 23:20 | RAD ---
Examination: CT ANGIO CHEST W ABD PEL W/ History: Abdominal pain status post . Edema, drainage, elevated d-dimer Comparison/Correlation: None Findings: Axial images of the chest, abdomen, and pelvis were obtained following IV contrast. Chest images were obtained according to pulmonary arteriography protocol. Oral contrast was administered. MIP images provided. Sagittal and coronal reformatted images provided. Pulmonary arterial vasculature is normal with no thromboembolic disease. Calcified granuloma is present at the right upper lung. No suspicious pulmonary nodule or mass. No enlarged thoracic lymph nodes. Heart size is borderline. Small hiatal hernia is present. There is a 2.2 cm diameter calculus gallbladder. Reza's lobe of the liver is present splenomegaly is present with the spleen measuring 14.5 cm longitudinal. Left adrenal gland low-attenuation lesion measuring 2.1 cm. Right adrenal gland is unremarkable. Kidneys are unremarkable. Uterus is distended with heterogeneously fluid within the present representing hemorrhage and/or debris. Moderate quantity of stool in colon noted. No inflammatory change about no enlarged abdominal or pelvic lymph nodes. Extraluminal gas and edema anterior to the urinary uterine fundus is noted. Fluid within the pannus of the low abdominal wall subcutaneous fat measuring up to 14.6 cm transverse by 2.5 cm anteroposterior. Severe L4/5 disc space narrowing is present. Impression: No pulmonary arterial thromboembolic disease. No infiltrate. Small hiatal hernia. Left adrenal gland lesion compatible with a benign adenoma. Heterogeneous fluid within the uterine cavity. Extraluminal gas and edema anterior to the uterine fundus. Correlate with reported history of . Fluid which may represent seroma or late subacute hematoma within the pannus of the low abdominal wall subcutaneous fat measuring up to 14.6 cm transverse by 2.5 cm anteroposterior. Underlying infectious etiology not excluded. Cholelithiasis. Splenomegaly. Electronically signed by: Enrique Ruiz MD (03/28/2019 11:17 PM) [facility]
[2019-03-29] MEDS ORDERED: ENOXAPARIN ** NOTE DOSE ** SYRINGE SQ ONE (00:30)
[2019-03-29] MEDS ORDERED: MORPHINE SULFATE 10 MG/ML SYRINGE. SQ ONE (00:45)
[2019-03-29 02:27] VITALS: BP 146/92
[2019-03-29 02:29] LABS: BACTERIA,URINE 0 /HPF (0-FEW); BILIRUBIN,URINE NEG (NEG); CLARITY,URINE CLEAR; COLOR,URINE YELLOW; GLUCOSE,URINE NEG (NEG); NITRITE,URINE NEG (NEG); RBC,URINE OCC /HPF (0-2); SQUAMOUS EPITHELIAL CELL,UR FEW /LPF; UROBILINOGEN,URINE 0.2 mg/dL (0.2 mg/dL); WBC,URINE OCC /HPF (0-4)
--- NOTE | 2019-03-29 06:06 | EKG ---
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
--- NOTE | 2019-03-29 07:50 | RAD ---
EXAM: PA and Lateral Views of the Chest DATE: 03/28/2019 7:44 PM INDICATION: Abdomen pain post , drainage from site, fever, chills COMPARISON: 04/30/2017, 02/26/17 FINDINGS/ IMPRESSION: The heart is not enlarged. Mediastinal and hilar contours are normal. Minimal patchy bibasilar airspace opacities, likely atelectasis. No lobar consolidation appear Calcified granuloma right upper lung. No pleural effusion or pneumothorax. Electronically signed by: Haja Vargas MD (03/29/2019 7:48 AM) [facility]
--- NOTE | 2019-03-29 07:51 | RAD ---
EXAM: AP views of the abdomen in upright and supine positions. CLINICAL INDICATION: COMPARISON: None. FINDINGS and IMPRESSION: No abnormal small or large bowel dilatation. Moderate to large volume colonic stool content. No abnormal soft tissue mass effect. No suspicious calcifications are seen. No free intraperitoneal gas. Electronically signed by: Haja Vargas MD (03/29/2019 7:48 AM) [facility]
== END 2019-03-29 02:51 | disposition short-term general hospital (02) ==
LOC: ER 19:19
DX: O86.89 Other specified puerperal infections (principal); O86.20 Urinary tract infection following delivery, unspecified; O90.81 Anemia of the puerperium; R79.1 Abnormal coagulation profile; O99.285 Endocrine, nutritional and metabolic diseases complicating the puerperium; E86.0 Dehydration; O25.3 Malnutrition in the puerperium; O99.335 Smoking (tobacco) complicating the puerperium; F17.200 Nicotine dependence, unspecified, uncomplicated; O99.325 Drug use complicating the puerperium; F12.10 Cannabis abuse, uncomplicated; I10 Essential (primary) hypertension; Z98.890 Other specified postprocedural states; Z88.0 Allergy status to penicillin
CPT/HCPCS: 36415; 71046; 71275; 74019; 74177; 80048; 80076; 80307; 81001; 81025; 82550; 83605; 83690; 83735; 83880; 84443; 84484; 85025; 85379; 85610; 85730; 87040; 93005; 96365; 96366; 96367; 96372; 96375; 99285; J1650; J2270; J2405; J3370; J3490; J7050; J7120; Q9966; Q9967; 87086

== ENCOUNTER 2019-06-27 16:42 | Emergency (ER) | payer OTHER ==
[~2019-06-27] VITALS: Ht 160 cm; Wt 103.3 kg
--- NOTE | 2019-06-27 17:32 | EKG ---
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
[2019-06-27 17:56] LABS: BASO % 1 % (0-3); EOS # 0.2 x10^3/uL (0.0-0.7); EOS % 3 % (0-3); HEMATOCRIT 31.9 % (36.0-47.0); HEMOGLOBIN 10.3 g/dL (12.0-15.5); LYMPH # 1.8 x10^3/uL (1.0-4.8); LYMPH % 35 % (24-48); MEAN CORPUSCULAR HEMOGLOBIN 27 pg (25-35); MEAN CORPUSCULAR HGB CONC 32 g/dL (31-37); MEAN CORPUSCULAR VOLUME 83 fL (79-100); MONO # 0.4 x10^3/uL (0.0-1.1); MONO % 7 % (0-9); NEUT # 2.9 x10^3uL (1.8-7.7); NEUT % 54 % (31-73); PLATELET COUNT 189 x10^3/uL (140-400); RED BLOOD COUNT 3.84 x10^6/uL (3.50-5.40); RED CELL DISTRIBUTION WIDTH 17.5 % (11.5-14.5); WHITE BLOOD COUNT 5.3 x10^3/uL (4.0-11.0)
[2019-06-27 18:04] LABS: BARBITURATES NEG (NEG); BENZODIAZEPINES NEG (NEG); CANNABINOIDS NEG (NEG); COCAINE NEG (NEG); METHADONE NEG (NEG); OPIATES NEG (NEG); PHENCYCLIDINE NEG (NEG)
[2019-06-27 18:05] LABS: AMPHETAMINE/METHAMPHETAMINE POS (NEG)
[2019-06-27 18:07] LABS: CALCIUM 8.4 mg/dL (8.5-10.1); GFR 62.7; POTASSIUM 3.3 mmol/L (3.5-5.1)
--- NOTE | 2019-06-27 18:12 | PHYS DOC ---
Past History Past Medical History: Bipolar, Depression, Hypertension, Other Additional Past Medical Histor: Alcohol Abuse (NIKA DUNHAM DO) Past Surgical History: Appendectomy, , Other Additional Past Surgical Histo: back surgery (NIKA DUNHAM DO) Alcohol Use: Occasionally Additional Alcohol Information: " quit for a long time, but I have been in a relapse for a few weeks" reports last use was Wednesday Drug Use: Marijuana, Methamphetamine (NIKA DUNHAM DO) Adult General Chief Complaint Chief Complaint: SUICIDAL IDEATION HPI HPI Patient is a 68-year-old female with history of bipolar, hypertension and metham phetamine abuse who presents with increased depression, anxiety with suicidal ideation. Patient states she is 3 months and in his single mother taking care of 5 children's. She reports increased depression with anxiety and suicidal thoughts for the past month. She also reports snorting methamphetamine for coping mechanism and increased G. Patient last used 2 days ago. Denies chest pain palpitations, headache. Patient resumed outpatient counseling 2 weeks ago was hydrated at [facility] today and was instructed to come to the ED for additional evaluation. Previously prescribed Abilify and blood pressure medication, but has been off all medications as prior to . No HI, hallucinations delusions or paranoia. Patient also reports concern for possible .. [] (NIKA DUNHAM DO) Review of Systems Review of Systems Review symptoms as per history of present illness. All other review symptoms are negative. All other systems were reviewed and found to be within normal limits, except as documented in this note. (NIKA DUNHAM DO) Allergies Allergies Allergies Coded Allergies Type Severity Reaction Last Updated Verified Penicillins Allergy Severe Anaphylaxis 03/29/19 Yes (NIKA DUNHAM DO) Physical Exam Physical Exam Constitutional: Well developed, well nourished, no acute distress, non-toxic appearance. [] HENT: Normocephalic, atraumatic, bilateral external ears normal, oropharynx moist, nose normal. [] Eyes: PERRLA, EOMI, conjunctiva normal. [] Neck: Normal range of motion, no tenderness, supple, no stridor. [] Cardiovascular:Heart rate regular rhythm, no murmur [] Lungs & Thorax: Bilateral breath sounds clear to auscultation [] Abdomen: Bowel sounds normal, soft, no tenderness. [] Skin: Warm, dry, no erythema, no rash. [] Back: No tenderness. [] Extremities: No tenderness, no edema. [] Neurologic: Alert and oriented X 3, normal motor function, normal sensory function, no focal deficits noted. [] Psychologic: Affect, anxious, positive suicidal ideation. [] (NIKA DUNHAM DO) Current Patient Data Vital Signs Vital Signs Date Time Temp Pulse Resp B/P (MAP) Pulse Ox O2 Delivery O2 Flow Rate FiO2 06/27/19 16:59 98.4 82 16 98 Lab Results Laboratory Tests Test 06/27/19 16:50 06/27/19 17:20 06/27/19 17:34 Urine Opiates Screen Neg (NEG) Urine Methadone Screen Neg (NEG) Urine Barbiturates Neg (NEG) Urine Phencyclidine Screen Neg (NEG) Urine Amphetamine/Methamphetamine Pos (NEG) Urine Benzodiazepines Screen Neg (NEG) Urine Cocaine Screen Neg (NEG) Urine Cannabinoids Screen Neg (NEG) Urine Ethyl Alcohol Neg (NEG) White Blood Count 5.3 x10^3/uL (4.0-11.0) Red Blood Count 3.84 x10^6/uL (3.50-5.40) Hemoglobin 10.3 g/dL (12.0-15.5) L Hematocrit 31.9 % (36.0-47.0) L Mean Corpuscular Volume 83 fL (79-100) Mean Corpuscular Hemoglobin 27 pg (25-35) Mean Corpuscular Hemoglobin Concent 32 g/dL (31-37) Red Cell Distribution Width 17.5 % (11.5-14.5) H Platelet Count 189 x10^3/uL (140-400) Neutrophils (%) (Auto) 54 % (31-73) Lymphocytes (%) (Auto) 35 % (24-48) Monocytes (%) (Auto) 7 % (0-9) Eosinophils (%) (Auto) 3 % (0-3) Basophils (%) (Auto) 1 % (0-3) Neutrophils # (Auto) 2.9 x10^3uL (1.8-7.7) Lymphocytes # (Auto) 1.8 x10^3/uL (1.0-4.8) Monocytes # (Auto) 0.4 x10^3/uL (0.0-1.1) Eosinophils # (Auto) 0.2 x10^3/uL (0.0-0.7) Basophils # (Auto) 0.0 x10^3/uL (0.0-0.2) Ethyl Alcohol Level < 10 mg/dL (0-10) POC Urine HCG, Qualitative hcg negative (Negative) (NIKA DUNHAM DO) EKG EKG [EKG: Reviewed] (NIKA DUNHAM DO) EKG My interpretation EKG shows a sinus rhythm at 75 bpm. Does have some left axis deviation and in interventricular conduction delay.. (EFREN SADLER MD) Radiology/Procedures Radiology/Procedures [] (NIKA DUNHAM DO) Course & Med Decision Making Course & Med Decision Making Pertinent Labs and Imaging studies reviewed. (See chart for details) [] Work up in progress. Anticipate tele-psych evaluation pending lab results. Care endorsed to oncoming ERP at 1800.] (NIKA DUNHAM DO) Course & Med Decision Making See Tele Psych. Report- Impression: 1. Anxiety 2. Depression 3. Suicidal Ideation 4. Anemia Hgb 10.3 5. Mild Hypokalemia 3.3 6. Interventricular conduction delay-BBBlock (EFREN SADLER MD) Dragon Disclaimer Dragon Disclaimer This electronic medical record was generated, in whole or in part, using a voice recognition dictation system. (NIKA DUNHAM DO) Departure Departure: Impression: Primary Impression: Suicidal ideation Additional Impression: Methamphetamine abuse Disposition: 01 HOME/RESIDENCE PRIOR TO ADM Condition: STABLE Referrals: MIKE PRUITT MD (PCP) Dragon Disclaimer This chart was dictated in whole or in part using Voice Recognition software in a busy, high-work load, and often noisy Emergency Department environment. It may contain unintended and wholly unrecognized errors or omissions. (EFREN SADLER MD) Problem Qualifiers NIKA DUNHAM DO Jun 27, 2019 18:12 EFREN SADLER MD Jun 27, 2019 20:10
[2019-06-27 18:19] LABS: ALBUMIN/GLOBULIN RATIO 0.9 (1.0-1.7); TOTAL BILIRUBIN 0.2 mg/dL (0.2-1.0); TOTAL PROTEIN 6.3 g/dL (6.4-8.2)
[2019-06-27] MEDS ORDERED: POTASSIUM CHLORIDE 20 MEQ TABLET.ER. PO ONE (20:45)
[2019-06-27 21:40] VITALS: BP 168/108
== END 2019-06-27 21:41 | disposition home or self-care (01) ==
LOC: ER 16:42
DX: F41.9 Anxiety disorder, unspecified (principal); F31.9 Bipolar disorder, unspecified; D64.9 Anemia, unspecified; E87.6 Hypokalemia; I45.4 Nonspecific intraventricular block; I10 Essential (primary) hypertension; F10.10 Alcohol abuse, uncomplicated; F15.10 Other stimulant abuse, uncomplicated; F12.10 Cannabis abuse, uncomplicated; Z88.0 Allergy status to penicillin; Y90.0 Blood alcohol level of less than 20 mg/100 ml
CPT/HCPCS: 36415; 80053; 80307; 81025; 82550; 84484; 85025; 93005; 99285; G0480